=== PATIENT | female | born 1955 | race Caucasian/White ===

== ENCOUNTER 2017-08-04 10:15 | Outpatient (RCR) | payer BC, OTHER ==
[~2017-08-04 10:15] MED LIST: VITAMIN D400 UNI1 PO
== END 2017-08-29 ==
LOC: PT 10:15
PROVIDERS: ATTEND Specialist
DX: S33.5XXA Sprain of ligaments of lumbar spine, initial encounter (principal); M54.5 Low back pain; M62.81 Muscle weakness (generalized)

== ENCOUNTER → 2017-12-17 | Outpatient (CLI) | payer BC, OTHER | LOC: MAMMO 13:41 | PROVIDERS: ATTEND Family Medicine | DX: Z12.31 Encounter for screening mammogram for malignant neoplasm of breast (principal) | CPT/HCPCS: 77067 ==

== ENCOUNTER → 2018-04-14 | Outpatient (CLI) | payer BC, OTHER ==
--- NOTE | 2018-04-14 15:06 | Diagnostic Imaging Report ---
MRI of the left ankle without contrast. History: Trauma. Pain. Decreased range of motion. Technique: Utilizing a high-field 1.5T magnet, the following sequences were acquired: PD FS in all 3 planes with additional axial PD. Comparison: None. Findings: Achilles tendon and plantar fascia: The Achilles tendon and plantar fascia are normal. Small bone spur at the posterior and inferior calcaneus. Small amount of retrocalcaneal bursal fluid. Cartilage and bone: Negative for osteochondral lesion of the tibiotalar and subtalar joints. Negative for fracture, osteonecrosis, or dislocation. Scattered degenerative changes are seen.. Medial ankle: The deltoid ligament complex is intact. There is distal posterior tibial tendinosis with a small amount of fluid surrounding the tendon and soft tissue edema. The medial flexor tendons are otherwise normal. There is a physiologic amount of fluid within the tendon sheath of FHL. Lateral ankle: Scarring and attenuation of the anterior talofibular and calcaneofibular ligaments. The posterior talofibular ligaments are intact. There is a small effusion and mild synovitis in the anterior lateral gutter. The syndesmotic ligaments are intact. The peroneal tendons are normal. Anterior ankle: The anterior extensor tendons are normal. Other findings: There is a tibiotalar joint effusion/synovitis projecting anteriorly. Mild soft tissue edema about the ankle. Impression: Distal posterior tibial tendinosis with a small amount of fluid surrounding the tendon and soft tissue edema. Scarring and attenuation of the anterior talofibular and calcaneofibular ligaments. Tibiotalar joint effusion and synovitis with mild soft tissue edema about the ankle. Signed by: Dr. London Reis M.D. on 04/14/2018 3:02 PM
== END ==
LOC: MRI 12:46
PROVIDERS: ATTEND Family Medicine
DX: M25.572 Pain in left ankle and joints of left foot (principal)

== ENCOUNTER → 2018-09-26 | Outpatient (CLI) | payer BC, OTHER | LOC: SLEEP 20:30 | PROVIDERS: ATTEND Family Medicine | DX: G47.30 Sleep apnea, unspecified (principal); R00.2 Palpitations; E66.9 Obesity, unspecified | CPT/HCPCS: 95811 ==

== ENCOUNTER → 2018-09-26 | Outpatient (CLI) | payer BC, OTHER | LOC: SLEEP 18:43 | PROVIDERS: ATTEND Family Medicine | DX: G47.30 Sleep apnea, unspecified (principal); R00.2 Palpitations; E66.9 Obesity, unspecified ==

== ENCOUNTER 2018-09-27 13:06 | Outpatient (RCR) | payer BC, OTHER | END 2018-09-29 | LOC: PT 13:06 | PROVIDERS: ATTEND Specialist | DX: S46.091D Other injury of muscle(s) and tendon(s) of the rotator cuff of right shoulder, subsequent encounter (principal); M62.81 Muscle weakness (generalized); M25.511 Pain in right shoulder; M79.601 Pain in right arm; M25.611 Stiffness of right shoulder, not elsewhere classified ==

== ENCOUNTER → 2018-09-29 | Outpatient (CLI) | payer BC, OTHER | LOC: RAD 12:41 | DX: R00.2 Palpitations (principal) | CPT/HCPCS: 93225; 93306 ==

== ENCOUNTER 2018-10-04 13:17 | Outpatient (RCR) | payer BC, OTHER | END 2018-10-27 | LOC: PT 13:17 | PROVIDERS: ATTEND Specialist | DX: S46.091D Other injury of muscle(s) and tendon(s) of the rotator cuff of right shoulder, subsequent encounter (principal); M25.511 Pain in right shoulder; M79.601 Pain in right arm; M25.611 Stiffness of right shoulder, not elsewhere classified; M62.81 Muscle weakness (generalized) ==

== ENCOUNTER → 2019-01-05 | Outpatient (CLI) | payer BC, OTHER ==
--- NOTE | 2019-01-05 12:50 | Diagnostic Imaging Report ---
TECHNIQUE: Magnetic resonance imaging of the LEFT KNEE was performed WITHOUT injected contrast. HISTORY: Fall, landed on knee, 3 weeks ago, strain of muscle, tear of lateral meniscus, reported history of repaired meniscus COMPARISON: None available. FINDINGS: LIGAMENTS AND TENDONS: ACL: Intact PCL: Intact Collateral ligaments: Intact Iliotibial band: Unremarkable Popliteal tendon: Intact Extensor mechanism: Intact, minimal intrasubstance degeneration of the proximal patellar tendon. JOINT: Menisci: Medial: Complex tearing and attenuation, most notably the knee with peripheral extrusion of the remnants. Lateral: Mild discoid variant. Articular Cartilage: Medial Compartment: Full-thickness erosion of the weightbearing cartilage and intra-articular air artifact compatible with degenerative changes. Lateral Compartment: Low-grade erosion, fibrillation, and fissuring of the weightbearing cartilage. Patellofemoral Compartment: Diffuse intermediate grade erosion. Joint Fluid: The amount of fluid within the joint is within physiologic limits. BONES: No focal or infiltrative bone marrow replacing abnormality. No acute fracture. Mild subchondral bone marrow edema adjacent to the medial compartment. SOFT TISSUES: Otherwise, unremarkable. IMPRESSION: 1. Medial compartment predominant tricompartmental degenerative changes, including degenerative tearing of the medial meniscus and medial compartment reactive subchondral bone marrow edema. 2. Minimal patellar tendinosis. 3. A subtle acute meniscal injury or medial compartment subchondral bone marrow contusion superimposed upon these chronic changes is possible in the provided setting; however, there is no acute fracture or acute ligamentous tear. Signed by: Dr. Ronnie Anderson D.O., M.M.M. on 01/05/2019 12:47 PM
--- NOTE | 2019-01-05 22:07 | Diagnostic Imaging Report ---
Examination: MRI SPINE LUMBAR WITHOUT CONTRAST History: Low back pain radiating down the left leg for 3 months. Comparison studies: None Technique: Sagittal, coronal and axial T2 , sagittal T1 and STIR; axial spin density oblique. Findings: Number of lumbar vertebral bodies: Five. Alignment: Normal lordosis. No scoliosis. Soft tissues: No T2 hyperintense inflammatory changes. Posterior paraspinal soft tissues and muscles: No abnormality. Lower thoracic cord: Normal in signal and morphology. The tip of the conus is at T12-L1. Cauda equina: No masses. No arachnoiditis. Vertebrae: No fractures, infection or neoplasm. Degenerative changes: L1-L2 through L3-L4: No abnormalities. L4-L5: Asymmetric to the left disc bulge contacts the exiting left L4 nerve root. No foraminal or canal stenosis. L5-S1: Asymmetric to the left disc bulge result in mild left neural foramina narrowing and contact of the exiting left L5 nerve root. No right foraminal or canal stenosis. IMPRESSION: 1. Contact of the exiting left L4 and L5 nerve roots at L4-L5 and L5-S1 by asymmetric to the left disc bulges. 2. No canal or significant (not moderate or severe) stenosis. Signed by: Dr. Mindy Pérez M.D. on 01/05/2019 10:04 PM
== END ==
LOC: MRI 09:49
PROVIDERS: ATTEND Specialist
DX: M54.42 Lumbago with sciatica, left side (principal); S83.282D Other tear of lateral meniscus, current injury, left knee, subsequent encounter; S39.012A Strain of muscle, fascia and tendon of lower back, initial encounter
CPT/HCPCS: 72148

== ENCOUNTER → 2019-05-16 | Outpatient (CLI) | payer BC, OTHER | LOC: CARD 08:27 | PROVIDERS: ATTEND Family Medicine | DX: R00.2 Palpitations (principal); R27.0 Ataxia, unspecified | CPT/HCPCS: 93880 ==

== ENCOUNTER 2019-05-22 15:00 | Outpatient (RCR) | payer BC, OTHER | END 2019-05-29 | LOC: PT 15:00 | PROVIDERS: ATTEND Physical Medicine & Rehabilitation Pain Medicine | DX: M47.27 Other spondylosis with radiculopathy, lumbosacral region (principal) ==

== ENCOUNTER → 2019-07-25 | Outpatient (CLI) | payer BC, OTHER ==
--- NOTE | 2019-07-25 12:22 | Diagnostic Imaging Report ---
Exam: Lumbar spine with flexion and extension views History: Lumbar radiculopathy Comparison: MRI lumbar spine 01/05/2019 Findings: There are 5 nonrib-bearing lumbar vertebral bodies. No acute, displaced fracture or subluxation. Soft tissue, ligamentous, and spinal cord abnormalities cannot be excluded on the basis of plain radiography. There is mild disc space narrowing, vacuum phenomenon, and endplate sclerosis at L5-S1. Remaining intervertebral disc spaces are comparatively well maintained. Mild bilateral facet arthropathy also at L5-S1. Flexion and extension radiographs show no evidence of inducible malalignment. Sacroiliac joints are intact. Sacral foramina are intact superiorly. Multiple upper abdominal surgical clips. Impression: No acute osseous abnormality. Mild lumbosacral degenerative disc changes and facet arthropathy. For further detail of nerve root pathology please refer to the report for MRI of the lumbar spine 01/05/2019. Signed by: Dr. Jared Brennan M.D. on 07/25/2019 12:19 PM
== END ==
LOC: RAD 11:21
PROVIDERS: ATTEND Neurological Surgery
DX: M54.16 Radiculopathy, lumbar region (principal)
CPT/HCPCS: 72110

== ENCOUNTER → 2020-04-05 | Outpatient (CLI) | payer MEDICARE, OTHER ==
--- NOTE | 2020-04-05 16:17 | Diagnostic Imaging Report ---
TECHNIQUE: Magnetic resonance imaging of the RIGHT KNEE was performed WITHOUT injected contrast. HISTORY: Right knee pain, tear of lateral meniscus COMPARISON: Left knee MRI 01/05/2019 FINDINGS: LIGAMENTS AND TENDONS: ACL: Intact PCL: Intact Collateral ligaments: Intact Iliotibial band: Unremarkable Popliteal tendon: Intact Extensor mechanism: Intact. Mild tendinosis of the patellar tendon at the superior attachment. JOINT: Menisci: Medial: Focal tear along the free margin at the body of the medial meniscus. Lateral: Intact Articular Cartilage: Medial Compartment: Diffuse high-grade cartilage thinning along the weightbearing medial femoral condyle and medial tibial plateau. Lateral Compartment: Diffuse low-grade cartilage thinning with scattered fissuring. No full-thickness cartilage defects. Patellofemoral Compartment: Diffuse cartilage thinning with focal high-grade defect overlying the median patellar ridge. Low-grade thinning along the trochlear cartilage. Small tricompartmental marginal osteophytes. Joint Fluid: The amount of fluid within the joint is within physiologic limits. BONE: No focal or infiltrative bone marrow replacing abnormality. No acute fracture. SOFT TISSUES: Anterior subcutaneous soft tissue edema overlying the patellar tendon. IMPRESSION: 1. Small focal tear along the free margin at the body of the medial meniscus. 2. Tricompartmental degenerative changes, greatest within the medial compartment with diffuse high-grade cartilage loss along the weightbearing medial femoral condyle and medial tibial plateau. 3. Mild tendinosis of the patellar tendon. Overlying mild anterior subcutaneous soft tissue edema. Signed by: Jordy Gardner MD on 04/05/2020 4:14 PM
--- NOTE | 2020-04-06 17:47 | Diagnostic Imaging Report ---
History: Lumbar radiculopathy. Comparison studies: Lumbar spine MRI 01/05/2019 Technique: Sagittal, axial coronal T2, sagittal T1, axial T2 FS, sagittal STIR and axial oblique proton density. Intravenous contrast: None Findings: Number of lumbar vertebral bodies: 5. Alignment: Normal lordosis. No scoliosis. Soft tissues: No T2 hyperintense inflammatory changes. Paraspinal muscles: No signal abnormalities. Well-preserved. No atrophic changes Lower thoracic cord: Normal in signal and morphology. The tip of the conus is at L1-L2. Cauda equina: No masses. No arachnoiditis. Vertebrae: No compression fractures, infection or neoplasm. Small Schmorl's node present along the superior T12 endplate. Degenerative changes: L1-L2: No abnormalities L2-L3: No abnormalities L3-L4: No abnormalities L4-L5: Mildly degenerated disc. Disc bulge slightly asymmetric to the left, thickened ligamentum flavum and moderate bilateral facet arthrosis with mild canal stenosis and mild left foraminal stenosis. Patent right foramen. Mild synovitis at the right facet, new from the prior MRI. L5-S1: Moderately degenerated disc with mild degenerative endplate changes with minimal edema along the left inferior L5 endplate. Asymmetric left disc osteophyte complex and mild facet arthrosis result in mild bilateral foraminal stenosis. No significant canal stenosis. These findings are unchanged from the prior MRI. IMPRESSION: 1. Disc degeneration, mild at L4-L5 and moderate at L5-S1, unchanged. 2. Mild degenerative canal stenosis at L4-L5, unchanged. 3. Mild foraminal stenosis at L4-L5 and at L5-S1, unchanged. 4. Moderate L4-L5 facet arthrosis with new mild synovitis at the right facet. Signed by: Dr. Jared Mayfield M.D. on 04/06/2020 5:43 PM
== END ==
LOC: MRI 08:56
PROVIDERS: ATTEND Specialist
DX: S83.281A Other tear of lateral meniscus, current injury, right knee, initial encounter (principal); M54.16 Radiculopathy, lumbar region
CPT/HCPCS: 72148

== ENCOUNTER → 2020-04-24 | Day surgery (SDC) | payer MEDICARE, OTHER ==
[2020-04-19 11:04] LABS: BASOPHILS % 0.5 % (0.0-1.0); EOSINOPHILS # (AUTO) 0.2 (0.0-0.4); EOSINOPHILS % 2.6 % (0.0-6.0); HEMOGLOBIN 12.7 g/dL (12.0-16.0); LYMPHOCYTES # (AUTO) 1.7 (1.0-3.2); LYMPHOCYTES % 21.7 % (18.0-39.1); MEAN CORPUSCULAR HEMOGLOBIN 27.5 pg (28-32); MEAN CORPUSCULAR HGB CONC 31.8 g/dL (31-35); MEAN CORPUSCULAR VOLUME 86.6 fL (81-99); MONOCYTES # (AUTO) 0.6 (0.2-0.8); MONOCYTES % 8.1 % (4.4-11.3); NEUTROPHILS # (AUTO) 5.2 (2.1-6.9); NEUTROPHILS % 66.7 % (38.7-80.0); PLATELET COUNT 209 x10e3/uL (140-360); RED BLOOD COUNT 4.62 x10e6/uL (3.6-5.1); RED CELL DISTRIBUTION WIDTH 13.3 % (11.7-14.4)
--- NOTE | 2020-04-19 11:45 | Diagnostic Imaging Report ---
EXAMINATION: CHEST 2 VIEWS INDICATION: Pre-operative COMPARISON: None FINDINGS: LINES/TUBES:None LUNGS:The lungs are well-inflated. No focal consolidation or pulmonary edema. PLEURA:No pleural effusion or pneumothorax. MEDIASTINUM:The cardiomediastinal silhouette appears normal in size and shape. BONES/SOFT TISSUES:No acute osseous injury. ABDOMEN:No free air under the diaphragm. Surgical clips in the right and left abdomen. IMPRESSION: No focal pneumonia or pulmonary edema. Signed by: Sha Smith MD on 04/19/2020 11:41 AM
[~2020-04-24] MED LIST changes: +ACETAMINOPHEN325 M1 PO; +BUPIVACAINE 0.5%/EPI 30 ML SDV INJ ONE; +CARAFATE1 GM/10 ML PO; +CEFAZOLIN SOD 1 GM/NS 50ML 100 ML IV ONE; +CEFUROXIME250 MG PO; +DEXAMETHASONE SOD PHOS INJ 4 MG/ML VIAL ONE; +FENTANYL CITRATE/PF 100MCG/2 ML INJ ONE; +FLOMAX0.4 MG PO; +KETOROLAC TROME10 MG PO; +KETOROLAC TROMETHAMINE 30 MG/ML VIAL ONE; +LIDOCAINE HCL 2% LOCAL INJ 5 ML SDV VIAL INJ ONE; +MIDAZOLAM HCL 2 MG/2 ML VIAL ONE; +NAPROXEN250 MG PO; +NEXIUM40 MG PO; +OMEPRAZOLE40 MG PO; +ONDANSETRON HCL INJ 2MG/ML 2ML 2 MG/ML VIAL ONE; +PROPOFOL IV EMULSION 10 MG/ML 20 ML VIAL ONE; +SEVOFLURANE INHAL SOLN 250 ML PEN BTL ONE
[2020-04-24 11:10] VITALS: BP 138/81
--- NOTE | 2020-05-02 21:35 | Operative Report ---
DATE OF PROCEDURE: 04/24/2020 SURGEON: Iam Dunn MD PREOPERATIVE DIAGNOSES: Right knee medial meniscal tear and right knee degenerative joint disease of the knee. POSTOPERATIVE DIAGNOSES: Right knee medial meniscal tear and right knee degenerative joint disease of the knee. OPERATION PROCEDURE PERFORMED: The patient had right knee examination under anesthesia, right knee arthroscopy, right knee partial medial meniscectomy, right knee chondroplasty of the patella, trochlea, medial femoral condyle and medial tibial plateau, and the lateral tibial plateau. 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 ANESTHESIA: Per the anesthesia record. BRIEF DESCRIPTION OF THE PATIENT'S OPERATIVE PROCEDURE: Ms. Bear was taken to the operating room and placed in supine position on the operating table. Following induction of general anesthesia as well as the endotracheal intubation, the patient's right lower extremity was examined under anesthesia. She was found to have a mild effusion within the knee joint, but otherwise ligamentously stable knee. The patient's lower extremity was prepped and draped in standard surgical fashion. A two-port technique used to provide this patient arthroscopic evaluation of the knee joint. Examination of suprapatellar pouch medial and lateral gutters found no evidence of loose bodies. There was however evidence of chondromalacia of the patella and trochlear surfaces. Scope was advanced to the medial compartment. Exam of the medial compartment demonstrated a torn medial meniscus. There was also chondromalacia articulating surfaces. A combination of biting forceps and a motorized shaver used to resect the torn portion of meniscus. Chondroplasties of the medial femoral condyle and medial tibial plateau performed at this time. Scope was then advanced into the intercondylar notch and the anterior cruciate ligament was identified and found to be intact. Scope was then advanced to the lateral compartment and chondromalacia lateral tibial plateau was identified. A chondroplasty of the surface was performed. The scope was then placed in suprapatellar pouch and chondroplasties of the patella and trochlear performed. The knee was then deflated with sterile normal saline. The portal was closed using 4-0 nylon suture. The portal sites as well as itself were injected with 0.5% Marcaine with epinephrine. Sterile dressings were applied. The patient was then awakened and taken to postanesthesia care unit in stable condition. Edward B Dunn, MD EBR/BALA /[id number]
== END | disposition home or self-care (01) ==
LOC: OR 07:37
PROVIDERS: ATTEND Specialist
DX: S83.221A Peripheral tear of medial meniscus, current injury, right knee, initial encounter (principal); M22.41 Chondromalacia patellae, right knee; M17.0 Bilateral primary osteoarthritis of knee; M22.2X2 Patellofemoral disorders, left knee; G47.33 Obstructive sleep apnea (adult) (pediatric); K21.9 Gastro-esophageal reflux disease without esophagitis; K44.9 Diaphragmatic hernia without obstruction or gangrene; M54.9 Dorsalgia, unspecified; X58.XXXA Exposure to other specified factors, initial encounter; Z01.810 Encounter for preprocedural cardiovascular examination; Z01.812 Encounter for preprocedural laboratory examination; Z01.818 Encounter for other preprocedural examination; Z11.59 Encounter for screening for other viral diseases; Z68.41 Body mass index [BMI] 40.0-44.9, adult; Z82.61 Family history of arthritis
CPT/HCPCS: 29881; 36415; 71046; 85025; 93005; J0690; J1100; J1885; J2001; J2250; J2405; J2704; J3010; U0002

== ENCOUNTER 2020-05-07 06:36 | Emergency (ER) | payer MEDICARE, OTHER ==
[~2020-05-07] VITALS: Ht 154.9 cm; Wt 96.2 kg
[~2020-05-07 06:36] MED LIST changes: -BUPIVACAINE 0.5%/EPI 30 ML SDV INJ ONE; -CEFAZOLIN SOD 1 GM/NS 50ML 100 ML IV ONE; -CEFUROXIME250 MG PO; -DEXAMETHASONE SOD PHOS INJ 4 MG/ML VIAL ONE; -FENTANYL CITRATE/PF 100MCG/2 ML INJ ONE; -FLOMAX0.4 MG PO; -KETOROLAC TROME10 MG PO; -KETOROLAC TROMETHAMINE 30 MG/ML VIAL ONE; -LIDOCAINE HCL 2% LOCAL INJ 5 ML SDV VIAL INJ ONE; -MIDAZOLAM HCL 2 MG/2 ML VIAL ONE; -NEXIUM40 MG PO; -ONDANSETRON HCL INJ 2MG/ML 2ML 2 MG/ML VIAL ONE; -PROPOFOL IV EMULSION 10 MG/ML 20 ML VIAL ONE; -SEVOFLURANE INHAL SOLN 250 ML PEN BTL ONE
[2020-05-07] MEDS ORDERED: ONDANSETRON HCL INJ 2MG/ML 2ML 2 MG/ML VIAL IV STA (06:42)
[2020-05-07] MEDS ORDERED: SODIUM CHLORIDE 0.9% 1000ML 1,000 ML IV STA (06:42)
[2020-05-07] MEDS ORDERED: KETOROLAC TROMETHAMINE 30 MG/ML VIAL IV STA (06:42)
--- OUTSIDE RECORDS SUMMARY | 2020-05-07 06:53 | XMS REPORT | Clinical Summary ---
Author Author [facility] Organization [facility] Address Unknown Phone Unavailable Care Team Providers Care Sonar Technician Name Role Phone Jose Jimenes MD PCP Allergies No Known Allergies Medications End Date Status Medication Sig Dispensed Refills Start Date Active meloxicam (MOBIC) 15 mg Take 15 mg by 0 tablet mouth daily. Active Problems No known active problems Encounters Care Team Description Date Type Specialty Tiara Moralez PA Mixed incontinence urge and stress (Prim rachel Dx); Urinary frequency 07/10/2019 Office Visit Urology Angelica Garcia MD Stress incontinence of urine (Primary Dx ) 06/20/2019 Transcribe Urology Orders after 05/07/2019 Family History Medical History Relation Name Comments Stroke Father Dementia Mother Relation Name Status Comments Father Mother Social History Date Tobacco Use Types Packs/Day Years Used Never Smoker Smokeless Tobacco: Never Used Sex Assigned at Date Recorded Not on file Industry Job Start Date Occupation Not on file Not on file Not on file Travel End Travel History Travel Start No recent travel history available. Last Filed Vital Signs Reading Time Taken Comments Vital Sign 153/79 07/10/2019 10:26 AM [employer] Blood Pressure 63 07/10/2019 10:26 AM [employer] Pulse - - Temperature - - Respiratory Rate - - Oxygen Saturation - - Inhaled Oxygen Concentration 95.3 kg (210 lb) 07/10/2019 10:26 AM [employer] Weight 154.9 cm (5' 1") 07/10/2019 10:26 AM [employer] Height 39.68 07/10/2019 10:26 AM [employer] Body Mass Index Plan of Treatment Health Maintenance Due Date Last Done Comments BREAST CANCER SCREENING 2004 COLONOSCOPY SCREENING 2004 SHINGLES VACCINES (#1) 2004 65+ PNEUMOCOCCAL VACCINE 2019 (1 of 2 - PCV13) INFLUENZA VACCINE 05/30/2020 Procedures Comments Procedure Name Priority Date/Time Associated Diag nosis POC URINALYSIS DIPSTICK Routine 07/10/2019 Mixed incontinence urge 10:32 AM [employer] and stress after 05/07/2019 Results * POC urinalysis dipstick (07/10/2019 10:32 AM [employer]) Color urine, Yellow POC Clarity urine, Clear POC Glucose urine, Negative Negative POC Bilirubin Negative Negative urine, POC Ketones urine, Negative Negative POC Specific >/=1.030 1.005 - 1.030 gravity urine, POC Blood urine, Negative Negative POC pH urine, POC 6.0 5.0, 5.5, 6.0, 6.5, 7.0, 7.5, 8.0, 8.5 Protein urine, Negative Negative POC Urobilinogen <2.0 <2.0 urine, POC Nitrite urine, Negative Negative POC Leukocyte Negative Negative esterase urine, POC Specimen Urine after 05/07/2019 Insurance Type Payer Benefit Subscriber ID Effective Phone Address Plan / Dates Group PPO BCBS BCBS OUT xxxxxxxxxxxx 2016-P OF STATE resent HMO CIGNA CIGNA OPEN xxxxxxxxxxx 2016-P ACCESS/NET resent WORK Advance Directives For more information, please contact: [phone] 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
--- OUTSIDE RECORDS SUMMARY | 2020-05-07 06:53 | XMS REPORT | Continuity of Care Document ---
Author Author [facility] Organization [facility] Address 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 [place] [place] Problems This patient has no known problems. Allergies, Adverse Reactions, Alerts This patient has no known allergies or adverse reactions. Family History Family Member Diagnosis Comments Start Date Stop Date Source Natural father Stroke [facility] Natural mother Dementia [facility] Social History Social Habit Start Date Stop Date Quantity Comments Source Sex Assigned At Mariana Fernandez Smoking Status Start Date Stop Date Source Never smoker [facility] Medications Ordered Medication Name Filled Medication Name Start Date Stop Da te Current Medication? Ordering Clinician Indication Dosage Frequency Signature (SIG) Comments Components Source meloxicam (MOBIC) 15 mg tablet 2019-07-10 10:27:43 Yes 15mg QD Take 15 mg by mouth daily. Hong Fernandez Cholecalciferol (Vitamin D) 400 Unit Tab Cholecalcifer ol (Vitamin D) 400 Unit Tab Yes [facility] [place] [place] Vital Signs Vital Name Observation Time Observation Value Comments Source Systolic blood pressure 2019-07-10 10:26:00 153 mm[Hg] Hong Fernandez Diastolic blood pressure 2019-07-10 10:26:00 79 mm[Hg] Hong Fernandez Heart rate 2019-07-10 10:26:00 63 /min Hong Fernandez Body height 2019-07-10 10:26:00 154.9 cm Hong Fernandez Body weight 2019-07-10 10:26:00 95.255 kg Hong Fernandez BMI 2019-07-10 10:26:00 39.68 kg/m2 Hong Fernandez Procedures Procedure Date / Time Performed Performing Clinician [facility] e POC URINALYSIS DIPSTICK 2019-07-10 10:32:00 Tiaar Moralez Magnetic resonance imaging of lumbar spine without contrast [facility] 2019-01-05 00:00:[address] CASTAÑ[address] [facility] [place] [place] Plan of Care Planned Activity Planned Date Details Comments Source Future Scheduled Test 2020-05-30 00:00:00 INFLUENZA VACCINE [code = INFLUENZA VACCINE] [facility] Future Scheduled Test 2019 00:00:00 65+ PNEUMOCOCCAL V ACCINE (1 of 2 - PCV13) [code = 65+ PNEUMOCOCCAL VACCINE (1 of 2 - PCV13)] [facility] Future Scheduled Test 2004 00:00:00 BREAST CANCER SCRE ENING [code = BREAST CANCER SCREENING] [facility] Future Scheduled Test 2004 00:00:00 COLONOSCOPY SCREEN ING [code = COLONOSCOPY SCREENING] [facility] Future Scheduled Test 2004 00:00:00 SHINGLES VACCINES (#1) [code = SHINGLES VACCINES (#1)] Hong Fernandez Encounters Start Date/Time End Date/Time En[facility] ID Source 2019-05-22 15:00:00 2019-05-29 23:59:00 Discharged Recurring [facility] [id number] [facility] [place] [place] 2019-05-16 08:27:00 2019-05-16 08:27:00 Registered Clinic [facility] [id number] [facility] [place] [place] 2019-01-05 09:49:00 2019-01-05 09:49:00 Registered Clinic DAVID BEAL [facility] [id number] [facility] 2018-10-04 13:17:00 2018-10-27 23:59:00 Discharged Recurring [facility] [id number] [facility] [place] [place] 2018-09-27 13:06:00 2018-09-29 23:59:00 Discharged Recurring [facility] [id number] [facility] [place] [place] 2018-09-29 12:41:00 2018-09-29 12:41:00 Registered Clinic [facility] [id number] [facility] [place] [place] 2018-09-26 20:30:00 2018-09-26 20:30:00 Registered Clinic [facility] [id number] [facility] [place] [place] 2018-09-26 18:43:00 2018-09-26 18:43:00 Registered Clinic [facility] [id number] [facility] [place] [place] 2018-04-14 12:46:00 2018-04-14 12:46:00 Registered Clinic 3 TH ADRIAN CABRALES [facility] [id number] [facility] 2017-12-17 13:41:00 2017-12-17 13:41:00 Registered Clinic EL TH ADRIAN CABRALES [facility] [id number] [facility] Results Test Description Test Time Test Comments Results Result Comments Source CHEST 2 VIEWS 2020-04-19 11:41:00 [facility] [address] [place] [address] Patient Name: GINA ENGEL MR #: [id number] : 1955 Age/Sex: 64/F Req #: [id number] Adm Physician: Ordered by: DAVID CASTAÑEDA MD Report #: [id number] Location: OR Room/Bed: Procedure: [id number] DX/CHEST 2 VIEWS Exam Date: 04/19/20 Exam Time: 1101 REPORT STATUS: Signed EXAMINATION: CHEST 2 VIEWS INDICATION: Pre-operative COMPARISON: None FINDINGS: LINES/TUBES:None LUNGS:The lungs are well-inflated. No focal consolidation or pulmonary edema. PLEURA:No pleural effusion or pneumothorax. MEDIASTINUM:The cardiomediastinal silhouette appears normal in size and shape. BONES/SOFT TISSUES:No acute osseous injury. ABDOMEN:No free air under the diaphragm. Surgical clips in the right and left abdomen. IMPRESSION: No focal pneumonia or pulmonary edema. Signed by: Richmond Frederick MD on 04/19/2020 11:41 AM Dictated By: RICHMOND FREDERICK MD 1141 Transcribed By: NEGRA on 04/19/20 1141 COPY TO: DAVID CASTAÑEDA MD MRI SPINE LUMBAR WO 2020-04-06 17:25:[address] [address] Patient Name: GINA ENGEL MR #: [id number] : 1955 Age/Sex: 64/F Req #: [id number] Adm Physician: Ordered by: CAROLE MONTANEZ M.D. Report #: [id number] Location: MRI Room/Bed: Procedure: [id number] MRI/MRI SPINE LUMBAR WO Exam Date: Exam Time: REPORT STATUS: Signed History: Lumbar radiculopathy. Comparison studies: Lumbar spine MRI 01/05/2019 Technique: Sagittal, axial coronal T2, sagittal T1, axial T2 FS, sagittal STIR and axial oblique proton density. Intravenous contrast: None Findings: Number of lumbar vertebral bodies: 5. Alignment: Normal lordosis. No scoliosis. Soft tissues: No T2 hyperintense inflammatory changes. Paraspinal muscles: No signal abnormalities. Well-preserved. No atrophic changes Lower thoracic cord: Normal in signal and morphology. The tip of the conus is at L1-L2. Cauda equina: No masses. No arachnoiditis. Vertebrae: No compression fractures, infection or neoplasm. Small Schmorl's node present along the superior T12 endplate. Degenerative changes: L1-L2: No abnormalities L2-L3: No abnormalities L3-L4: No abnormalities L4-L5: Mildly degenerated disc. Disc bulge slightly asymmetric to the left, thickened ligamentum flavum and moderate bilateral facet arthrosis with mild canal stenosis and mild left foraminal stenosis. Patent right foramen. Mild synovitis at the right facet, new from the prior MRI. L5-S1: Moderately degenerated disc with mild degenerative endplate changes with minimal edema along the left inferior L5 endplate. Asymmetric left disc osteophyte complex and mild facet arthrosis result in mild bilateral foraminal stenosis. No significant canal stenosis. These findings are unchanged from the prior MRI. IMPRESSION: 1. Disc degeneration, mild at L4-L5 and moderate at L5- S1, unchanged. 2. Mild degenerative canal stenosis at L4-L5, unchanged. 3. Mild foraminal stenosis at L4-L5 and at L5-S1, unchanged. 4. Moderate L4-L5 facet arthrosis with new mild synovitis at the right facet. Signed by: Dr. Joseph Anderson M.D. on 04/06/2020 5:43 PM Dictated By: JOSEPH ANDERSON MD 42 Transcribed By: NEGRA on 04/06/201742 COPY TO: CAROLE MONTANEZ M.D. MRI RIGHT KNEE WO 2020-04-05 14:59:00 [place] [address] Patient Name: GINA ENGEL MR #: [id number] : 1955 Age/Sex: 64/F Req #: [id number] Adm Physician: Ordered by: DAVID CASTAÑEDA MD Report #: [id number] Location: MRI Room/Bed: Procedure: [id number] MRI/MRI RIGHT KNEE WO Exam Date: Exam Time: REPORT STATUS: Signed TECHNIQUE: Magnetic resonance imaging of the RIGHT KNEE was performed WITHOUT injected contrast. HISTORY: Right knee pain, tear of lateral meniscus COMPARISON: Left knee MRI 01/05/2019 FINDINGS: LIGAMENTS AND TENDONS: ACL: Intact PCL: Intact Collateral ligaments: Intact Iliotibial band: Unremarkable Popliteal tendon: Intact Extensor mechanism: Intact. Mild tendinosis of the patellar tendon at the superior attachment. JOINT: Menisci: Medial: Focal tear along the free margin at the body of the medial meniscus. Lateral: Intact Articular Cartilage: Medial Compartment: Diffuse high-grade cartilage thinning along the weightbearing medial femoral condyle and medial tibial plateau. Lateral Compartment: Diffuse low-grade cartilage thinning with scattered fissuring. No full-thickness cartilage defects. Patellofemoral Compartment: Diffuse cartilage thinning with focal high-grade defect overlying the median patellar ridge. Low-grade thinning along the trochlear cartilage. Small tricompartmental marginal osteophytes. Joint Fluid: The amount of fluid within the joint is within physiologic limits. BONE: No focal or infiltrative bone marrow replacing abnormality. No acute fracture. SOFT TISSUES: Anterior subcutaneous soft tissue edema overlying the patellar tendon. IMPRESSION: 1. Small focal tear along the free margin at the body of the medial meniscus. 2. Tricompartmental degenerative changes, greatest within the medial compartment with diffuse high-grade cartilage loss along the weightbearing medial femoral condyle and medial tibial plateau. 3. Mild tendinosis of the patellar tendon. Overlying mild anterior subcutaneous soft tissue edema. Signed by: Annmarie Gardner MD on 04/05/2020 4:14 PM Dictated By: ANNMARIE GARDNER MD 13 Transcribed By: NEGRA on 04/05/201613 COPY TO: DAVID CASTAÑEDA MD BASIC METABOLIC PANEL 2019-10-16 15:44:00 Test Item SODIUM (test code = NA) 138 MMOL/L 136-143 N POTASSIUM (test code = K) 4.0 MMOL/L 3.5-5.1 N CHLORIDE (test code = CL) 99 MMOL/L 98-107 N CARBON DIOXIDE (test code = CO2) 26 mmol/L 24-31 N GLUCOSE (test code = GLU) 95 mg/dL 70-104 N BLOOD UREA NITROGEN (test code = BUN) 15.9 MG/DL 7.0-21.0 N GLOMERULAR FILTRATION RATE (test code = GFR) >=60 max estimate >60 The estimated glomerular filtration rate is computed usingpatient race, age (>18), sex, and serum creatinine. If anyof the needed data elements are missing the Laboratory cannot compute an estimation of the glomerular filtration rate. CREATININE (test code = CREAT) 0.5 mg/dL 0.8-1.5 L CALCIUM (test code = CA) 9.5 mg/dL 8.8-10.2 N CBC W/AUTO [id number] 15:29:00* Test Item Value Reference Range Interpretation Comments WHITE BLOOD CELL (test code = WBC) 7.2 x10 3/uL 4.8-10.8 N RED BLOOD CELL (test code = RBC) 5.03 x10 6/uL 4.20-5.40 N HEMOGLOBIN (test code = HGB) 14.0 g/dL 14.5-20 L HEMATOCRIT (test code = HCT) 43.3 % 37.0-47.0 N MEAN CELL VOLUME (test code = MCV) 86.1 fL 81.0-99.0 N MEAN CELL HGB (test code = MCH) 27.8 pg 27-31 N MEAN CELL HGB CONCENTRATION (test code = MCHC) 32.3 G/DL 33-36.5 L RED CELL DISTRIBUTION WIDTH (test code = RDW) 13.3 % 12.9-16. 9 N PLATELET COUNT (test code = PLT) 214 150-440 N MEAN PLATELET VOLUME (test code = MPV) 10.7 fL 8.9-12.4 N NEUTROPHIL % (test code = NT%) 66.1 % 42.2-75.2 N LYMPHOCYTE % (test code = LY%) 24.1 % 20.5-51.1 N MONOCYTE % (test code = MO%) 6.7 % 1.7-9.3 N EOSINOPHIL % (test code = EO%) 2.1 % 0.0-7.0 N BASOPHIL % (test code = BA%) 0.6 % 0-2.5 N NEUTROPHIL # (test code = NT#) 4.74 x10 3/uL 1.80-7.70 N LYMPHOCYTE # (test code = LY#) 1.73 x10 3/uL 1.00-4.80 N MONOCYTE # (test code = MO#) 0.48 x10 3/uL 0.00-0.80 N EOSINOPHIL # (test code = EO#) 0.15 x10 3/uL 0.00-0.45 N BASOPHIL # (test code = BA#) 0.04 x10 3/uL 0.0-0.20 N TROPONIN I [id number] 15:26:00* Test Item Value Reference Range Interpretation Comments TROPONIN I RAPID (test code = TROPIRAP) 0.00 ng/mL 0.00-0.08 N - The use of serial sampling and testing protocol is a recommended practice- An elevated tropnin level alone is often not sufficient for diagnosis of myocardial infarction. SP LUM AP/LAT/FLEX/EXT MIN [id number] 12:15:00 [place] [address] Patient Name: GINA ENGEL MR #: [id number] : 1955 Age/Sex: 64/F Req #: [id number] [facility] Physician: Ordered by: CAROLE MONTANEZ M.D. Report #: [id number] Location: [facility] Room/Bed: Procedure: [id number] DX/SP LUM AP/LAT/FLEX/EXT MIN 4VW Exam Date: 07/25/19 Exam Time: 1145 REPORT STATUS: S igned Exam: Lumbar spine with flexion and extension views History: Lumbar radiculopathy Comparison: MRI lumbar spine 01/05/2019 Findings: There are 5 nonrib-bearing lumbar vertebral bodies. No acute, displaced fr acture or subluxation. Soft tissue, ligamentous, and spinal cord abnormalities cannot be excluded on the basis of plain radiography. There is mild disc space narrowing, vacuum phenomenon, and endplate sclerosis at L5-S1. Remaining int ervertebral disc spaces are comparatively well maintained. Mild bilateral face t arthropathy also at L5-S1. Flexion and extension radiographs show no evidenc e of inducible malalignment. Sacroiliac joints are intact. Sacral foramina are intact superiorly. Multiple upper abdominal surgical clips. Impres carlos: No acute osseous abnormality. Mild lumbosacral degenerative disc changes and facet arthropathy. For further detail of nerve root pathology please refer to the report for MRI of the lumbar spine 01/05/2019. Signed by: Dr. Joseph Brennan M.D. on 07/25/2019 12:19 PM Dictated By: JOSEPH BRENNAN MD 121 T ranscribed By: NEGRA on 07/25/19 2311 COPY TO: CAROLE MONTANEZ M.D. POC urinalysis [id number] 10:32:00* Test Item Value Reference Range Interpretation Comments Color urine, POC (test code = 1293043) Yellow Clarity urine, POC (test code = 9360292) Clear Glucose urine, POC (test code = 6327726) Negative Negative Bilirubin urine, POC (test code = 5922477) Negative Negative Ketones urine, POC (test code = 7775458) Negative Negative Specific gravity urine, POC (test code = 9267612) >/=1.030 1.00 5-1.030 Blood urine, POC (test code = 8632018) Negative Negative pH urine, POC (test code = 2598105) 6.0 5.0, 5.5, 6. 0, 6.5, 7.0, 7.5, 8.0, 8.5 Protein urine, POC (test code = 1843854) Negative Negative Urobilinogen urine, POC (test code = 5779865) <2.0 <2.0 Nitrite urine, POC (test code = 0623549) Negative Negative Leukocyte esterase urine, POC (test code = 2443286) Negative Ne surinder [place] [facility] w[facility]o [id number] 15:53:49Patient: GINA ENGEL Date/Time01/21/2019 15:05 CDTReason for ExamHead injuryReportCLINICAL INFORMAT ION: Head injury. Headache.Dictation Location: R 16COMPARISON: No prior.Techniqu e: CT head was done in the usual fashion. Appropriate dose reduction and image o ptimization techniques were used. DLP 623 mGy-cm. Findings: There is a large rig ht parietal scalp hematoma with laceration closed by surgical clips. The subjace nt cranium and the skull base appear unremarkable. The brain shows no midline sh ift, mass effect, hemorrhage, or abnormal extra-axial fluid collection. There is no intrinsic brain mass or recent ischemia.Impression:1. Large right parietal s calp hematoma.2. Intact skull and brain. Final Dictated by: MD Bateman Andrew GDictated DT/TM: 01/21/2019 3:51 pmSigned by: MD Bateman Andrew GS igned (Electronic Signature): 01/21/2019 3:53 pmMRI SPINE LUMBAR [id number] 14:15:00 [place] [address] Patient Name: GINA ENGEL MR #: [id number] : 1955 Age/Sex: 63/F Req #: [id number] Adm Physician: Ordered by: DAVID CASTAÑEDA MD Report #: [id number] Location: MRI Room/Bed: Procedure: [id number] MRI/MRI SPINE LUMBAR WO Exam Date: Exam Time: REPORT STATUS: Signed Examination: M RI SPINE LUMBAR WITHOUT CONTRAST History: Low back pain radiating down the left leg for 3 months. Comparison studies: None Technique: Sagittal, coronal and axial T2 , sagittal T1 and STIR; axial spin density oblique. Findings: Number of lumbar vertebral bodies: Five. Alignment: Normal lordosis. No scoliosis. Soft tissues: No T2 hyperintense inflammatory changes. Posterior paraspinal soft tissues and muscles: No abnormality. Lower thor acic cord: Normal in signal and morphology. The tip of the conus is at T12-L1. Cauda equina: No masses. No arachnoiditis. Vertebrae: No fractures, infection or neoplasm. Degenerative changes: L1-L2 through L3-L4: No abnormalities. L4-L5: Asymmetric to the left disc bulge contacts the exi ting left L4 nerve root. No foraminal or canal stenosis. L5-S1: Asymme tric to the left disc bulge result in mild left neural foramina narrowing and contact of the exiting left L5 nerve root. No right foraminal or canal stenosi s. IMPRESSION: 1. Contact of the exiting left L4 and L5 nerve roots at L4-L5 and L5-S1 by asymmetric to the left disc bulges. 2. No canal or significant (not moderate or severe) stenosis. Signed by: Dr. Angela smith M.D. on 01/05/2019 10:04 PM Dictated By: ANGELA ESPINOZA MD 03 Transcri bed By: NEGRA on 01/05/192203 COPY TO: DAVID CASTAÑEDA MD MRI KNEE LEFT [id number] 12:37:00 [place] [address] Patient Name: GINA ENGEL MR #: [id number] : 1955 Age/Sex: 63/F Req #: [id number] Adm Physician: Ordered by: DAVID CASTAÑEDA MD Report #: [id number] Location: MRI Room/Bed: Procedure: [id number] MRI/MRI KNEE LEFT WO Exam Date: Exam Time: REPORT STATUS: Signed TECHNIQUE: Magn etic resonance imaging of the LEFT KNEE was performed WITHOUT injected contras t. HISTORY: Fall, landed on knee, 3 weeks ago, strain of muscle, tear of lateral meniscus, reported history of repaired meniscus COMPARISON: None av ailable. FINDINGS: LIGAMENTS AND TENDONS: ACL: Intact PCL: Intact Collateral ligaments: Intact Iliotibial band: Unremarkable Popliteal ten don: Intact Extensor mechanism: Intact, minimal intrasubstance degeneration of the proximal patellar tendon. JOINT: Menisci: Medial: Complex te aring and attenuation, most notably the knee with peripheral extrusion of the remnants. Lateral: Mild discoid variant. Articular Cartilage: Medial C ompartment: Full-thickness erosion of the weightbearing cartilage and intra-a rticular air artifact compatible with degenerative changes. Lateral Compartmen t: Low-grade erosion, fibrillation, and fissuring of the weightbearing cartil age. Patellofemoral Compartment: Diffuse intermediate grade erosion. Iesha nt Fluid: The amount of fluid within the joint is within physiologic limits. BONES: No focal or infiltrative bone marrow replacing abnormality. No acute fracture. Mild subchondral bone marrow edema adjacent to the medial c ompartment. SOFT TISSUES: Otherwise, unremarkable. IMPRESSION: 1. Medial compartment predominant tricompartmental degenerative changes, incl uding degenerative tearing of the medial meniscus and medial compartment react veronica subchondral bone marrow edema. 2. Minimal patellar tendinosis. 3. A wall btle acute meniscal injury or medial compartment subchondral bone marrow contu carlos superimposed upon these chronic changes is possible in the provided setti ng; however, there is no acute fracture or acute ligamentous tear. Signed by: Karis ShannonOVirgilio, M.M.M. on 01/05/2019 12:47 PM Dictated By: BEBA REHMAN DO 1247 Transcrib ed By: NEGRA on 01/05/19 1247 COPY TO: DAVID CASTAÑEDA MD MRI ANKLE LEFT [id number] 14:52:00 [place] [address] Patient Name: GINA ENGEL MR #: [id number] : 1955 Age/Sex: 62/F Req #: [id number] Adm Physician: Ordered by: ADRIAN MARTINEZ MD Report #: [id number] Location: MRI Room/Bed: Procedure: [id number] MRI/MRI ANKLE LEFT WO Exam Date : Exam Time: REPORT STATUS: Signed MRI of the left ankle without contrast. History: Trauma. Pain. Decreased range of motion. Technique: Utilizing a high-field 1.5T magnet, the following seque nces were acquired: PD FS in all 3 planes with additional axial PD. Comp arison: None. Findings: Achilles tendon and plantar fascia: The Parlier s tendon and plantar fascia are normal. Small bone spur at the posterior and i nferior calcaneus. Small amount of retrocalcaneal bursal fluid. Cartilage and bone: Negative for osteochondral lesion of the tibiotalar and subtalar phyllis ints. Negative for fracture, osteonecrosis, or dislocation. Scattered degenera tive changes are seen.. Medial ankle: The deltoid ligament complex is intac t. There is distal posterior tibial tendinosis with a small amount of fluid s urrounding the tendon and soft tissue edema. The medial flexor tendons are oth erwise normal. There is a physiologic amount of fluid within the tendon sheat h of FHL. Lateral ankle: Scarring and attenuation of the anterior talofibul ar and calcaneofibular ligaments. The posterior talofibular ligaments are inta ct. There is a small effusion and mild synovitis in the anterior lateral gutte r. The syndesmotic ligaments are intact. The peroneal tendons are normal. Anterior ankle: The anterior extensor tendons are normal. Other findings: There is a tibiotalar joint effusion/synovitis projecting anteriorly. Mil d soft tissue edema about the ankle. Impression: Distal posterior tibial tendinosis with a small amount of fluid surrounding the tendon and soft tissue edema. Scarring and attenuation of the anterior talofibular and calcaneofi bular ligaments. Tibiotalar joint effusion and synovitis with mild soft t issue edema about the ankle. Signed by: Dr. Humera Reis M.D. on 8 3:02 PM Dictated By: HUMERA REIS MD, MD 1502 Transcribed By: NEGRA on 04/14/18 1502 COPY TO: ADRIAN MARTINEZ MD [facility] DIGITAL SCR [place] [address] Patient Name: GINA ENGEL MR #: [id number] : 1955 Age/Sex: 62/F Req #: [id number] [facility] Physician: Ordered by: ADRIAN MARTINEZ MD Report #: [id number] Location: MAMMO Room/Bed: Procedure: [id number] MG/MAMMOGRAPHY DIGITAL SCR BILA T Exam Date: 12/17/17 Exam Time: 1350 REPORT S TATUS: Signed #[id number] - [id number] #BILATERAL DIGITAL SCREENING STEPH CARMINA WITH CAD: 12/17/2017 CLINICAL: Routine screening. Comparison is m estrella to exams dated: 11/13/2016 mammogram - [facility] an d 01/04/2008 mammogram - [facility]. Current study contains 4 film s. The tissue of both breasts is predominantly fatty. Current study was also evaluated with a Computer Aided Detection (CAD) system. There are benig n calcifications in both breasts. There also are benign lymph nodes in both tia asts. No significant masses, calcifications, or other findings are seen i n either breast. There has been no significant interval change. IMPRESS ION: BENIGN There is no mammographic evidence of malignancy. A 1 year screeni ng mammogram is recommended. The patient will be notified by letter of the shaquille vasquez. Yves villagomez/jr:12/24/2017 11:29:09 Physical Science Teacher: Angelica LAZAR(R)(M), [facility] letter sent: Compared to Prior B9 Mammogram BI-RADS: 2 Benign Dictated By: YVES PERERA DO 1129 COPY TO: ADRIAN MARTINEZ MD MRI KNEE LEFT WO [facility] [place] [address] Patient Name: GINA ENGEL MR #: [id number] : 1955 Age/Sex: 62/F Req #: [id number] [facility] Physician: Ordered by: DAVID CASTAÑEDA MD Report #: [id number] Location: MRI Room/Bed: Procedure: [id number] MRI/MRI KNEE LEFT WO Exam D ate: 05/06/17 Exam Time: 1410 REPORT STATUS: Si gned TECHNIQUE: Magnetic resonance imaging of the LEFT KNEE was performed W ITHOUT injected contrast. HISTORY: Left knee pain COMPARISON: MRI Ap ril 2016 FINDINGS: LIGAMENTS AND TENDONS: ACL: Intact PCL: Intact Collateral ligaments: Intact Iliotibial band: Unrem arkable Popliteal tendon: Intact Extensor mechanism: Intact JOINT: Menisci: Medial: Complex tearing with macerated bod y. Lateral: Partial discoid with free margin fraying. Art icular Cartilage: Medial Compartment: High-grade cartilage loss wit h areas of full-thickness erosion Lateral Compartment: Low-grade cartilage loss Patellofemoral Compartment: Intermediate grade carti sofia loss Joint Fluid: Small joint effusion. BONE: Subchondra l edema medial compartment. No acute fracture. SOFT TISSUES: Otherwis e, unremarkable. IMPRESSION: Tricompartmental cartilage loss, medi al compartment predominant with areas of full thickness cartilage loss and sub chondral edema. Medial meniscus complex tearing and lateral meniscus partia l discoid with free margin fraying. Overall stable. Signed by: Dr. Mika Noguera M.D. on 05/06/2017 3:59 PM Dictated By: JANETH NOGUERA MD [id number] Transcribed By: NEGRA on 05/06/17 [id number] COPY TO: DAVID CASTAÑEDA MD
[2020-05-07 06:57] LABS: BASOPHILS % 0.6 % (0.0-1.0); EOSINOPHILS # (AUTO) 0.2 (0.0-0.4); EOSINOPHILS % 2.7 % (0.0-6.0); HEMATOCRIT 40.7 % (34.2-44.1); LYMPHOCYTES # (AUTO) 1.5 (1.0-3.2); LYMPHOCYTES % 20.4 % (18.0-39.1); MEAN CORPUSCULAR HEMOGLOBIN 27.4 pg (28-32); MEAN CORPUSCULAR HGB CONC 31.9 g/dL (31-35); MEAN CORPUSCULAR VOLUME 85.9 fL (81-99); MONOCYTES # (AUTO) 0.4 (0.2-0.8); MONOCYTES % 5.9 % (4.4-11.3); NEUTROPHILS % 70.1 % (38.7-80.0); PLATELET COUNT 201 x10e3/uL (140-360); RED BLOOD COUNT 4.74 x10e6/uL (3.6-5.1); RED CELL DISTRIBUTION WIDTH 13.3 % (11.7-14.4)
[2020-05-07 07:10] LABS: CLARITY,URINE SL CLOUDY (CLEAR); COLOR,URINE YELLOW (YELLOW); KETONES,URINE NEGATIVE (NEGATIVE); LEUKOCYTE ESTERASE ,URINE NEGATIVE (NEGATIVE); NITRITE,URINE NEGATIVE (NEGATIVE); PROTEIN,URINE DIPSTICK NEGATIVE (NEGATIVE)
[2020-05-07 07:11] LABS: BILIRUBIN,URINE NEGATIVE (NEGATIVE); URINE UROBILINOGEN 1 mg/dL (0.2 - 1)
--- NOTE | 2020-05-07 07:16 | NUR ---
Assumed care of patient from offgoing RN. Pt reports pain is 2/10 at this time. Toradol is effective for pain control.
[2020-05-07 07:28] LABS: BACTERIA,URINE RARE /HPF; EPITHELIAL CELLS,URINE FEW /LPF; WBC,URINE (MAN) 21-50 /HPF (0-5)
[2020-05-07 07:30] LABS: ALANINE AMINOTRANSFERASE 23 IU/L (0-55); ALBUMIN 4.4 g/dL (3.5-5.0); ALBUMIN/GLOBULIN RATIO 1.5 (0.8-2.0); ALKALINE PHOSPHATASE 67 IU/L (40-150); ANION GAP 16.4 mmol/L (8-16); BLOOD UREA NITROGEN 20 mg/dL (7-26); BUN/CREATININE RATIO 26 (6-25); CALCIUM 9.1 mg/dL (8.4-10.2); CARBON DIOXIDE 22 mmol/L (22-29); CHLORIDE 109 mmol/L (98-107); CREATININE, SERUM 0.78 mg/dL (0.57-1.11); EST GLOMERULAR FILTRATION RATE > 60 ML/MIN (60-); GLUCOSE 140 mg/dL (74-118); POTASSIUM 3.4 mmol/L (3.5-5.1); SODIUM 144 mmol/L (136-145)
--- NOTE | 2020-05-07 07:49 | Emergency Department Note ---
History of Present Illnes History of Present Illness Chief Complaint: Abdominal Complaints History of Present Illness This is a 65 year old female Patient c/o left flank pain that started this morning with radiation to left lower quadrant. Patient also c/o nausea and states she vomited one time. Denies dysuria, frequency or blood in urine. States she does have history ok kidney stones. No distress noted at this time. Historian: Patient Arrival Mode: Car Raw Juice Weigher Required: No Onset (how long ago): hour(s) Location: left flank Quality: pain Radiation: Reports abdomen Severity: severe Onset quality: sudden Timing of current episode: intermittent Progression: waxing and waning Chronicity: new Context: Denies recent illness Relieving factors: none Exacerbating factors: none Associated symptoms: Reports nausea/vomiting (1 episode of vomiting) Past Medical/Family History Physician Review I have reviewed the patient's past medical and family history. Any updates have been documented here. Past Medical History Recent Fever: No Clinical Suspicion of Infectio: No New/Unexplained Change in Ment: No Past Medical History: Hepatitis C Other Medical History: herniated disc Past Surgical History: Cholecysctectomy, Hysterectomy Other Surgery: knee sx Social History Smoking Cessation: Never Smoker Counseling Performed: No Alcohol Use: Occasional Any Illegal Drug Use: No TB Exposure/Symptoms: No Physically hurt or threatened: No Family History Family history of heart diseas: No Other Any Pre-Existing Lines (PICC,: No Review of Systems Review of Systems Constitutional: Reports no symptoms EENTM: Reports no symptoms Cardiovascular: Reports no symptoms Respiratory: Reports no symptoms Gastrointestinal: Reports as per HPI Genitourinary: Reports no symptoms Musculoskeletal: Reports no symptoms Integumentary: Reports no symptoms Neurological: Reports no symptoms Psychological: Reports no symptoms Endocrine: Reports no symptoms Hematological/Lymphatic: Reports no symptoms Physical Exam Related Data Allergies: Coded Allergies: No Known Allergies (Unverified , 12/14/16) Triage Vital Signs Vital Signs Date Time Temp Pulse Resp B/P (MAP) Pulse Ox O2 Delivery O2 Flow Rate FiO2 05/07/20 06:36 98.5 76 20 174/92 99 Room Air Vital signs reviewed: Yes Physical Exam CONSTITUTIONAL Constitutional: Present well-developed, Present well-nourished HENT HENT: Present normocephalic, Present atraumatic, Present oropharynx clear/moist, Present nose normal HENT L/R: Present left ext ear normal, Present right ext ear normal EYES Eyes: Reports PERRL, Reports conjunctivae normal NECK Neck: Present ROM normal PULMONARY Pulmonary: Present effort normal, Present breath sounds normal CARDIOVASCULAR Cardiovascular: Present regular rhythm, Present heart sounds normal, Present capillary refill normal, Present normal rate GASTROINTESTINAL Abdominal: Present soft, Present nontender, Present bowel sounds normal; Absent left CVA tenderness, Absent right CVA tenderness GENITOURINARY Genitourinary: Present exam deferred SKIN Skin: Present warm, Present dry MUSCULOSKELETAL Musculoskeletal: Present ROM normal NEUROLOGICAL Neurological: Present alert, Present oriented x 3, Present no gross motor or sensory deficits PSYCHOLOGICAL Psychological: Present mood/affect normal, Present judgement normal Results Laboratory Result Diagram: 05/07/2045 05/07/20 0645 Laboratory Laboratory Tests Test 05/07/20 06:45 White Blood Count 7.10 x10e3/uL (4.8-10.8) Red Blood Count 4.74 x10e6/uL (3.6-5.1) Hemoglobin 13.0 g/dL (12.0-16.0) Hematocrit 40.7 % (34.2-44.1) Mean Corpuscular Volume 85.9 fL (81-99) Mean Corpuscular Hemoglobin 27.4 pg (28-32) Mean Corpuscular Hemoglobin Concent 31.9 g/dL (31-35) Red Cell Distribution Width 13.3 % (11.7-14.4) Platelet Count 201 x10e3/uL (140-360) Neutrophils (%) (Auto) 70.1 % (38.7-80.0) Lymphocytes (%) (Auto) 20.4 % (18.0-39.1) Monocytes (%) (Auto) 5.9 % (4.4-11.3) Eosinophils (%) (Auto) 2.7 % (0.0-6.0) Basophils (%) (Auto) 0.6 % (0.0-1.0) Neutrophils # (Auto) 5.0 (2.1-6.9) Lymphocytes # (Auto) 1.5 (1.0-3.2) Monocytes # (Auto) 0.4 (0.2-0.8) Eosinophils # (Auto) 0.2 (0.0-0.4) Basophils # (Auto) 0.0 (0.0-0.1) Absolute Immature Granulocyte (auto 0.02 x10e3/uL (0-0.1) Urine Color Yellow (YELLOW) Urine Clarity Sl cloudy (CLEAR) Urine pH 6 (5 - 7) Urine Specific Angelica 1.025 (1.010-1.025) Urine Protein Negative (NEGATIVE) Urine Glucose (UA) Negative (NEGATIVE) Urine Ketones Negative (NEGATIVE) Urine Blood Large (NEGATIVE) Urine Nitrite Negative (NEGATIVE) Urine Bilirubin Negative (NEGATIVE) Urine Urobilinogen 1 mg/dL (0.2 - 1) Urine Leukocyte Esterase Negative (NEGATIVE) Urine RBC 11-20 /HPF (0-5) Urine WBC 21-50 /HPF (0-5) Urine Epithelial Cells Few /LPF (NONE) Urine Bacteria Rare /HPF (NONE) Sodium Level 144 mmol/L (136-145) Potassium Level 3.4 mmol/L (3.5-5.1) Chloride Level 109 mmol/L (98-107) Carbon Dioxide Level 22 mmol/L (22-29) Anion Gap 16.4 mmol/L (8-16) Blood Urea Nitrogen 20 mg/dL (7-26) Creatinine 0.78 mg/dL (0.57-1.11) Estimat Glomerular Filtration Rate > 60 ML/MIN (60-) BUN/Creatinine Ratio 26 (6-25) Glucose Level 140 mg/dL (74-118) Calcium Level 9.1 mg/dL (8.4-10.2) Total Bilirubin 1.0 mg/dL (0.2-1.2) Aspartate Amino Transf (AST/SGOT) 17 IU/L (5-34) Alanine Aminotransferase (ALT/SGPT) 23 IU/L (0-55) Alkaline Phosphatase 67 IU/L (40-150) Total Protein 7.4 g/dL (6.5-8.1) Albumin 4.4 g/dL (3.5-5.0) Globulin 3.0 g/dL (2.3-3.5) Albumin/Globulin Ratio 1.5 (0.8-2.0) Lab results reviewed: Yes Imaging Imaging results reviewed: Yes Impressions EXAM: CT Abdomen and Pelvis WITHOUT intravenous contrast INDICATION: Abdominal pain, back pain COMPARISON: None. TECHNIQUE: Abdomen and pelvis were scanned utilizing a multidetector helical scanner from the lung base to the pubic symphysis without administration of IV contrast. Coronal and sagittal reformations were obtained. IV CONTRAST: None ORAL CONTRAST: None COMPLICATIONS: None RADIATION DOSE: Total DLP: 776 mGy*cm Dose modulation, iterative reconstruction, and/or weight based adjustment of the mA/kV was utilized to reduce the radiation dose to as low as reasonably achievable. FINDINGS: LOWER THORAX: Normal. HEPATOBILIARY: Diffuse hepatic steatosis. No focal liver lesion. Status post cholecystectomy. SPLEEN: No splenomegaly. PANCREAS: No focal masses or ductal dilatation. ADRENALS: No adrenal nodules. KIDNEYS/URETERS: 3mm left proximal ureteral calculus with minimal associated left hydroureteronephrosis and mild left perinephric fat stranding. No solid renal mass lesions. No additional calculi identified. No right hydronephrosis or hydroureter. PELVIC ORGANS/BLADDER: Unremarkable. PERITONEUM / RETROPERITONEUM: No free air or fluid. LYMPH NODES: No lymphadenopathy. VESSELS: Unremarkable. GI TRACT: Status post sleeve gastrectomy. No abnormal bowel thickening. No bowel obstruction. Normal appendix. BONES AND SOFT TISSUES: Three ventral abdominal wall defects containing herniated fat without bowel. No acute osseous injury. No suspicious lytic or blastic lesions. IMPRESSION: 3 mm left proximal ureteral calculus with minimal associated left hydroureteronephrosis and mild left perinephric fat stranding. Hepatic steatosis. Signed by: Sha Smith MD on 05/07/2020 8:46 AM Assessment & Plan Medical Decision Making MDM left flank pain radiating to left abdomen, non-tender on exam - cbc, chem, ua/cx, ct abd/pelvis - likely ureterolithiasis, eval renal function, electrolyte abnl, diverticulitis, sbo Reassessment Reassessment CT NOTED, ROCEPHIN IV GIVEN, PT PAIN-FREE AFTER TORADOL IV. DC HOME WITH TORADOL, TYL #3, FLOMAX, CEFTIN 500 BID X 10 DAYS, F/U PCP AND DR Susan ESCALERA Assessment & Plan Final Impression: (1) Ureterolithiasis (2) UTI (urinary tract infection) Depart Disposition: HOME, SELF-CARE Last Vital Signs Date Time Temp Pulse Resp B/P (MAP) Pulse Ox O2 Delivery O2 Flow Rate FiO2 05/07/20 07:29 67 18 143/78 97 Room Air 05/07/20 06:36 98.5 Home Meds Reported Medications Omeprazole (OMEPRAZOLE) 40 Mg Capsule.dr, MG PO DAILY 04/24/20 Sucralfate (CARAFATE) 1 Gm/10 Ml Oral.susp, 1 GM PO QID, ML 04/24/20 Acetaminophen (ACETAMINOPHEN) 325 Mg Tablet, 650 MG PO PRN for 5 Days, TAB 04/17/20 Naproxen (NAPROXEN) 250 Mg Tablet, 500 MG PO PRN, TAB 04/17/20 Medications in the ED Ondansetron HCl 4 mg ONCE STAT IV Last administered on 05/07/20at 07:03; Admin Dose 4 MG; Start 05/07/20 at 06:42; Stop 05/07/20 at 06:52; Status DC Ketorolac Tromethamine 30 mg ONCE STAT IV Last administered on 05/07/20at 07:03; Admin Dose 30 MG; Start 05/07/20 at 06:42; Stop 05/07/20 at 06:52; Status DC Sodium Chloride 1,000 ml @ 0 mls/hr Q0M STAT IV Last administered on 05/07/20at 07:03; Admin Dose 999 MLS/HR; Start 05/07/20 at 06:42; Stop 05/07/20 at 06:45; Status DC PREET KENT MD May 07, 2020 07:49
[2020-05-07] MEDS ORDERED: CEFTRIAXONE SOD 1 GM/NS 50 ML 50 ML IV ONE (08:30)
--- NOTE | 2020-05-07 08:49 | Diagnostic Imaging Report ---
EXAM: CT Abdomen and Pelvis WITHOUT intravenous contrast INDICATION: Abdominal pain, back pain COMPARISON: None. TECHNIQUE: Abdomen and pelvis were scanned utilizing a multidetector helical scanner from the lung base to the pubic symphysis without administration of IV contrast. Coronal and sagittal reformations were obtained. IV CONTRAST: None ORAL CONTRAST: None COMPLICATIONS: None RADIATION DOSE: Total DLP: 776 mGy*cm Dose modulation, iterative reconstruction, and/or weight based adjustment of the mA/kV was utilized to reduce the radiation dose to as low as reasonably achievable. FINDINGS: LOWER THORAX: Normal. HEPATOBILIARY: Diffuse hepatic steatosis. No focal liver lesion. Status post cholecystectomy. SPLEEN: No splenomegaly. PANCREAS: No focal masses or ductal dilatation. ADRENALS: No adrenal nodules. KIDNEYS/URETERS: 3mm left proximal ureteral calculus with minimal associated left hydroureteronephrosis and mild left perinephric fat stranding. No solid renal mass lesions. No additional calculi identified. No right hydronephrosis or hydroureter. PELVIC ORGANS/BLADDER: Unremarkable. PERITONEUM / RETROPERITONEUM: No free air or fluid. LYMPH NODES: No lymphadenopathy. VESSELS: Unremarkable. GI TRACT: Status post sleeve gastrectomy. No abnormal bowel thickening. No bowel obstruction. Normal appendix. BONES AND SOFT TISSUES: Three ventral abdominal wall defects containing herniated fat without bowel. No acute osseous injury. No suspicious lytic or blastic lesions. IMPRESSION: 3 mm left proximal ureteral calculus with minimal associated left hydroureteronephrosis and mild left perinephric fat stranding. Hepatic steatosis. Signed by: Sha Smith MD on 05/07/2020 8:46 AM
[2020-05-07 09:34] VITALS: BP 142/72
[2020-05-09] MEDS ORDERED: KETOROLAC TROME10 MG PO (11:39)
[2020-05-09] MEDS ORDERED: FLOMAX0.4 MG PO (11:39)
[2020-05-09] MEDS ORDERED: CEFUROXIME250 MG PO (11:39)
[2020-05-09] MEDS ORDERED: NEXIUM40 MG PO (11:39)
== END 2020-05-07 09:43 | disposition home or self-care (01) ==
LOC: ER 06:50
DX: R10.32 Left lower quadrant pain (principal); N13.2 Hydronephrosis with renal and ureteral calculous obstruction; N39.0 Urinary tract infection, site not specified; R11.2 Nausea with vomiting, unspecified; B19.20 Unspecified viral hepatitis C without hepatic coma; K76.0 Fatty (change of) liver, not elsewhere classified
CPT/HCPCS: 36415; 74176; 80053; 81001; 85025; 87086; 99284; J0696; J1885; J2405; J7030

== ENCOUNTER → 2020-05-13 | Day surgery (SDC) | payer MEDICARE, OTHER ==
--- NOTE | 2020-05-09 14:23 | Diagnostic Imaging Report ---
Exam: KUB - 2 views Indication: Preoperative Comparison: CT abdomen and pelvis of 05/07/2020 Findings: No radiographically apparent urinary calculi. Specifically, the left proximal ureteral calculus previously seen on CT of 05/07/2020 is not right iliac appreciable on this radiograph. This may be due to its small size or alternatively due to interval passage. Nonobstructive bowel gas pattern. No free air. Surgical clips in the upper abdomen. No acute osseous injury. Impression: No radiographically apparent urinary calculi. Left ureteral calculus seen on CT of 05/07/2020 may be too small to be visualized on this radiograph or alternatively may have passed. Signed by: Sha Smith MD on 05/09/2020 2:20 PM
[~2020-05-13] MED LIST changes: +B&O 60MG R/S 60 MG SUPP PR ONE; +CEFTRIAXONE SOD 1 GM/NS 50 ML 100 ML IV ONE; +CEFUROXIME250 MG PO; +DEXAMETHASONE SOD PHOS INJ 4 MG/ML VIAL ONE; +FENTANYL CITRATE/PF 100MCG/2 ML INJ ONE; +FLOMAX0.4 MG PO; +IOPAMIDOL 300MG/ML 50ML INFUS..BTL IV ONE; +KETOROLAC TROME10 MG PO; +LIDOCAINE HCL 2% LOCAL INJ 5 ML SDV VIAL INJ ONE; +MIDAZOLAM HCL 2 MG/2 ML VIAL ONE; +NEXIUM40 MG PO; +ONDANSETRON HCL INJ 2MG/ML 2ML 2 MG/ML VIAL ONE; +PROPOFOL IV EMULSION 10 MG/ML 20 ML VIAL ONE; +SEVOFLURANE INHAL SOLN 250 ML PEN BTL ONE
[2020-05-13 15:10] VITALS: BP 146/84
--- NOTE | 2020-05-31 08:51 | Operative Report ---
DATE OF PROCEDURE: 05/13/2020 SURGEON: Saul Rutherford MD PREOPERATIVE DIAGNOSES: 1. Left ureterolithiasis. 2. Left hydronephrosis due to stone. 3. Urinary tract infections. 4. Microhematuria. POSTOPERATIVE DIAGNOSES: 1. Left ureterolithiasis. 2. Left hydronephrosis due to stone. 3. Urinary tract infections. 4. Microhematuria. 5. Grade 3 to 4 cystocele. 6. Grade 1 rectocele. 7. Urethral hypermobility. 8. Atrophic (senile) vaginitis. OPERATIONS PERFORMED: 1. Cystourethroscopy with bilateral ureteral catheterization and retrograde ureteropyelography (separate procedure performed for urinary tract infections and microhematuria). 2. Interpretation of retrograde ureteropyelography, no radiologist present. 3. Supervision of fluoroscopy, no radiologist present. 4. Left ureteroscopy with stone manipulation and extraction (separate procedure performed for the diagnosis of stone). 5. Radiological services with supervision and interpretation of ureteroscopy. 6. Cystourethroscopy with insertion of left indwelling ureteral stent (separate procedure performed to relieve the hydronephrosis). 7. Pelvic examination under anesthesia. ANESTHESIA: General. COMPLICATIONS: None. CLINICAL SUMMARY: Juliann Bear is a 65-year-old woman with the above preoperative diagnoses. She is brought for the above procedures. She is aware of the risks of bleeding, infection, injury to adjacent structures, need for additional procedures, and elected to proceed. OPERATIVE PROCEDURE IN DETAIL: Informed consent was verified. Juliann Bear was properly identified, taken to the operating room, placed on the cystoscopy table in supine position. Anesthesia was uneventfully begun. The patient was then carefully and gently repositioned in the dorsal lithotomy position with all pressure points well padded. Her genitalia were prepared and draped in usual sterile fashion. The cystoscope sheath with obturator in place was atraumatically inserted into the patient's urethra and bladder was drained. Panendoscopy revealed no suspicious mucosal lesions, no tumors, no stones, and no diverticula. Ureteral catheter was used to cannulate the left ureter and retrograde ureteropyelogram was performed and was then inserted in the right ureter and retrograde ureteropyelograms were performed. The ureteroscope was then placed into the left ureter and guided to the level of the stone. The stone was then grasped with nitinol tipless basket and extracted atraumatically. With cystoscopic fluoroscopic guidance, a left-sided indwelling ureteral stent was then placed, it was coiled in the patient's kidneys as well as the patient's bladder. The retaining suture was cut short. INTERPRETATION OF RETROGRADE URETEROPYELOGRAPHY: Contrast was instilled in retrograde fashion bilaterally. The right side was unremarkable. There were no tumors, no stones, no diverticula. Unobstructed drainage was observed fluoroscopically on the left side, exhibited hydronephrosis. The stent was in good position, coiled in the patient's kidneys as well as the patient's bladder at the end of the case. The patient's bladder was drained, cystoscope was withdrawn. Pelvic examination under anesthesia revealed a grade 3 to 4 cystocele, grade 1 rectocele. There was urethral hypermobility and atrophic (senile) vaginitis. The patient was then uneventfully reversed from anesthesia and taken to recovery room in stable condition. There were no complications to the procedure. She tolerated the procedure well. PLANS: Plans will be to return the patient to the operating room in approximately a month to remove her stent, perform left ureteroscopy and hopefully render the patient stent free and stone free. MD YUDELKA Sutton/BALA /[id number]
== END | disposition home or self-care (01) ==
LOC: OR 13:06
PROVIDERS: ATTEND Urology
DX: N13.2 Hydronephrosis with renal and ureteral calculous obstruction (principal); N39.0 Urinary tract infection, site not specified; N81.10 Cystocele, unspecified; N81.6 Rectocele; N36.41 Hypermobility of urethra; N95.2 Postmenopausal atrophic vaginitis; N39.46 Mixed incontinence; G47.33 Obstructive sleep apnea (adult) (pediatric); E66.9 Obesity, unspecified; K21.9 Gastro-esophageal reflux disease without esophagitis; K44.9 Diaphragmatic hernia without obstruction or gangrene; Z01.812 Encounter for preprocedural laboratory examination; Z01.818 Encounter for other preprocedural examination; Z11.59 Encounter for screening for other viral diseases; Z68.41 Body mass index [BMI] 40.0-44.9, adult; Z84.1 Family history of disorders of kidney and ureter
CPT/HCPCS: 36415; 52332; 52352; 74018; 74420; 83970; 84550; 88300; C1758; C1769; C2617; J0696; J1100; J2001; J2250; J2405; J2704; J3010; Q9967; U0002

== ENCOUNTER → 2020-06-18 | Outpatient (CLI) | payer MEDICARE, OTHER ==
[~2020-06-18] MED LIST changes: -B&O 60MG R/S 60 MG SUPP PR ONE; -CEFTRIAXONE SOD 1 GM/NS 50 ML 100 ML IV ONE; -DEXAMETHASONE SOD PHOS INJ 4 MG/ML VIAL ONE; -FENTANYL CITRATE/PF 100MCG/2 ML INJ ONE; -IOPAMIDOL 300MG/ML 50ML INFUS..BTL IV ONE; -LIDOCAINE HCL 2% LOCAL INJ 5 ML SDV VIAL INJ ONE; -MIDAZOLAM HCL 2 MG/2 ML VIAL ONE; -ONDANSETRON HCL INJ 2MG/ML 2ML 2 MG/ML VIAL ONE; -PROPOFOL IV EMULSION 10 MG/ML 20 ML VIAL ONE; -SEVOFLURANE INHAL SOLN 250 ML PEN BTL ONE
--- NOTE | 2020-06-18 13:03 | Diagnostic Imaging Report ---
TECHNIQUE: 2 frontal images of the abdomen. HISTORY: ^[id number] ^5 ^CALCULUS OF KIDNEY. COMPARISON: None. IMPRESSION: Nonobstructive radiographic bowel gas pattern. No acute bony abnormality. No free air within the imaged abdomen. Left unilateral double-J stents. No radiopaque stones overlying the renal shadows. Surgical clips overlying the right upper quadrant and left diaphragm. Signed by: Deepak Morrow MD on 06/18/2020 1:00 PM
== END ==
LOC: RAD 12:19
PROVIDERS: ATTEND Urology
DX: N20.0 Calculus of kidney (principal)
CPT/HCPCS: 74018

== ENCOUNTER 2020-06-28 20:10 | Emergency (ER) | payer MEDICARE, OTHER ==
[~2020-06-28] VITALS: Ht 154.9 cm; Wt 94.3 kg
[~2020-06-28 20:10] MED LIST changes: -ACETAMINOPHEN/CODEINE 300MG - 30MG TAB ONE; -B&O 60MG R/S 60 MG SUPP PR ONE; -CEFTRIAXONE SOD 1 GM/NS 50 ML 50 ML IV ONE; -DEXAMETHASONE SOD PHOS INJ 4 MG/ML VIAL ONE; -FENTANYL CITRATE/PF 100MCG/2 ML INJ ONE; -HYDROMORPHONE 1MG/1ML INJ ONE; -IOPAMIDOL 300MG/ML 50ML INFUS..BTL IV ONE; -LIDOCAINE HCL 2% LOCAL INJ 5 ML SDV VIAL INJ ONE; -MACROBID 100 M100 MG PO; -MIDAZOLAM HCL 2 MG/2 ML VIAL ONE; -ONDANSETRON HCL INJ 2MG/ML 2ML 2 MG/ML VIAL ONE; -ONDANSETRON ODT8 MG PO; -PREDNISONE20 MG PO; -PROPOFOL IV EMULSION 10 MG/ML 20 ML VIAL ONE; -SEVOFLURANE INHAL SOLN 250 ML PEN BTL ONE; -ULTRAM50 MG PO
[2020-06-28] MEDS ORDERED: MORPHINE SULFATE INJ 4 MG/ML INJ 1ML IM STA (21:09)
[2020-06-28] MEDS ORDERED: KETOROLAC TROMETHAMINE 60 MG/2 ML VIAL IM ONE (21:15)
[2020-06-28] MEDS ORDERED: ONDANSETRON HCL 4 MG ORAL DISINTEGRATING TAB PO ONE (21:15)
[2020-06-28] MEDS ORDERED: ONDANSETRON HCL 4 MG ORAL DISINTEGRATING TAB ONE (21:22)
[2020-06-28] MEDS ORDERED: MORPHINE SULFATE INJ 4 MG/ML INJ 1ML ONE (21:22)
[2020-06-28] MEDS ORDERED: KETOROLAC TROMETHAMINE 60 MG/2 ML VIAL ONE (21:22)
--- NOTE | 2020-06-28 23:03 | Diagnostic Imaging Report ---
EXAM: CT Abdomen WITHOUT contrast INDICATION: PAIN COMPARISON: None. TECHNIQUE: Abdomen was scanned utilizing a multidetector helical scanner from the lung base to the iliac crest without administration of IV contrast. Absence of intravenous contrast decreases sensitivity for detection of focal lesions and vascular pathology. Coronal and sagittal reformations were obtained. Routine protocol was performed. IV CONTRAST: None ORAL CONTRAST: Water COMPLICATIONS: None FINDINGS: LINES and TUBES: None. LOWER THORAX: Unremarkable HEPATOBILIARY: The liver is diffuse hypodense compared to the spleen, consistent with diffuse hepatic diffuse hepatic steatosis. No focal hepatic lesions. No biliary ductal dilation. GALLBLADDER: There are cholecystectomy clips. SPLEEN: No splenomegaly. PANCREAS: No focal masses or ductal dilatation. ADRENALS: No adrenal nodules KIDNEYS/URETERS: Left perinephric fat stranding and distention of the renal pelvis. Marked fat stranding along the course of the left ureter. Contrast from recent pyelogram remains within the left renal pelvis and ureter. Interval removal of a left ureteral stent. Phlebolith in the left hemipelvis. No ureteral calculi. Tiny punctate nonobstructing right intrarenal calculus. GI TRACT: No abnormal distention, wall thickening, or evidence of bowel obstruction. Evidence of prior bariatric surgery. Mild colonic diverticulosis without evidence of acute diverticulitis. LYMPH NODES: No lymphadenopathy. VESSELS: Unremarkable. PERITONEUM / RETROPERITONEUM: No free air or fluid. BONES: Unremarkable. SOFT TISSUES: There is a fat containing para-umbilical hernia. IMPRESSION: 1. Left perinephric and periureteral fat stranding and mild hydronephrosis. No urinary tract calculi identified. Residual contrast from recent retrograde pyelogram within the left renal pelvis, left ureter, and bladder. Findings may represent a nonvisualized recently passed calculus, although pyelonephritis could have a similar appearance. Underlying distal ureteral or bladder lesion not excluded. 2. Hepatic steatosis. 3. Diverticulosis without evidence of acute diverticulitis. Signed by: Foster Pérez MD on 06/28/2020 11:00 PM
[2020-06-28] MEDS ORDERED: METHYLPREDNISOLONE SOD SUCC 125 MG/2ML VIAL ONE (23:26)
[2020-06-28] MEDS ORDERED: PROMETHAZINE HCL (IM) 25 MG/ML VIAL IM ONE (23:26)
[2020-06-28] MEDS ORDERED: MACROBID 100 M100 MG PO (23:27)
[2020-06-28] MEDS ORDERED: ULTRAM50 MG PO (23:27)
[2020-06-28] MEDS ORDERED: PREDNISONE20 MG PO (23:27)
[2020-06-28] MEDS ORDERED: ONDANSETRON ODT8 MG PO (23:27)
--- NOTE | 2020-06-28 23:27 | Emergency Department Note ---
History of Present Illnes History of Present Illness Chief Complaint: left lbp s/p ureteral stent removal History of Present Illness This is a 65 year old female . Historian: Patient Arrival Mode: Car History limited by: condition of the patient (normal) Ingot Passer Required: No Onset (how long ago): hour(s) (7) Location: see above Quality: sharp Radiation: Reports flank (left) Severity: severe Onset quality: gradual Duration (how long): hour(s) (7) Timing of current episode: constant Progression: worsening Chronicity: new Context: Reports recent surgery Relieving factors: none Exacerbating factors: movement Associated symptoms: Reports malaise, Reports nausea/vomiting Treatments prior to arrival: none Past Medical/Family History Physician Review I have reviewed the patient's past medical and family history. Any updates have been documented here. Past Medical History Recent Fever: No Clinical Suspicion of Infectio: No New/Unexplained Change in Ment: No Past Medical History: Hepatitis C Other Medical History: herniated disc Past Surgical History: Cholecysctectomy, Hysterectomy Other Surgery: knee sx Social History Physically hurt or threatened: No Family History Family history of heart diseas: No Other Any Pre-Existing Lines (PICC,: No Is patient up to date on immun: No Review of Systems Review of Systems Constitutional: Reports no symptoms EENTM: Reports no symptoms Cardiovascular: Reports no symptoms Respiratory: Reports no symptoms Gastrointestinal: Reports as per HPI Genitourinary: Reports no symptoms Musculoskeletal: Reports as per HPI Integumentary: Reports no symptoms Neurological: Reports no symptoms Psychological: Reports no symptoms Endocrine: Reports no symptoms Hematological/Lymphatic: Reports no symptoms Review of other systems: All other systems negative Physical Exam Related Data Allergies: Coded Allergies: No Known Allergies (Unverified , 12/14/16) Triage Vital Signs Vital Signs Date Time Temp Pulse Resp B/P (MAP) Pulse Ox O2 Delivery O2 Flow Rate FiO2 06/28/20 20:30 98.6 67 18 166/90 97 Room Air Vital signs reviewed: Yes Physical Exam CONSTITUTIONAL Constitutional: Present well-developed, Present well-nourished HENT HENT: Present normocephalic, Present atraumatic, Present oropharynx clear/moist, Present nose normal HENT L/R: Present left ext ear normal, Present right ext ear normal EYES Eyes: Reports PERRL, Reports conjunctivae normal NECK Neck: Present ROM normal, Present supple PULMONARY Pulmonary: Present effort normal, Present breath sounds normal CARDIOVASCULAR Cardiovascular: Present regular rhythm, Present heart sounds normal, Present capillary refill normal, Present normal rate GASTROINTESTINAL Abdominal: Present soft, Present nontender, Present bowel sounds normal GENITOURINARY Genitourinary: Present exam deferred SKIN Skin: Present warm, Present dry MUSCULOSKELETAL Musculoskeletal: Present ROM normal, Present tenderness (left cva) NEUROLOGICAL Neurological: Present alert, Present oriented x 3, Present no gross motor or sensory deficits PSYCHOLOGICAL Psychological: Present mood/affect normal, Present judgement normal Results Imaging Imaging results reviewed: Yes Impressions [facility] [address] [address] Patient Name: GINA ENGEL MR #: [id number] : 1955 Age/Sex: 65/F Req #: [id number] Adm Physician: Ordered by: KYLE VALENCIA Report #: [id number] Location: [facility] Room/Bed: Procedure: [id number] HOPD/CT ABD/PEL WO CONTRAST-HOPD Exam Date: 06/28/20 Exam Time: 2122 REPORT STATUS: Signed EXAM: CT Abdomen WITHOUT contrast INDICATION: PAIN COMPARISON: None. TECHNIQUE: Abdomen was scanned utilizing a multidetector helical scanner from the lung base to the iliac crest without administration of IV contrast. Absence of intravenous contrast decreases sensitivity for detection of focal lesions and vascular pathology. Coronal and sagittal reformations were obtained. Routine protocol was performed. IV CONTRAST: None ORAL CONTRAST: Water COMPLICATIONS: None FINDINGS: LINES and TUBES: None. LOWER THORAX: Unremarkable HEPATOBILIARY: The liver is diffuse hypodense compared to the spleen, consistent with diffuse hepatic diffuse hepatic steatosis. No focal hepatic lesions. No biliary ductal dilation. GALLBLADDER: There are cholecystectomy clips. SPLEEN: No splenomegaly. PANCREAS: No focal masses or ductal dilatation. ADRENALS: No adrenal nodules KIDNEYS/URETERS: Left perinephric fat stranding and distention of the renal pelvis. Marked fat stranding along the course of the left ureter. Contrast from recent pyelogram remains within the left renal pelvis and ureter. Interval removal of a left ureteral stent. Phlebolith in the left hemipelvis. No ureteral calculi. Tiny punctate nonobstructing right intrarenal calculus. GI TRACT: No abnormal distention, wall thickening, or evidence of bowel obstruction. Evidence of prior bariatric surgery. Mild colonic diverticulosis without evidence of acute diverticulitis. LYMPH NODES: No lymphadenopathy. VESSELS: Unremarkable. PERITONEUM / RETROPERITONEUM: No free air or fluid. BONES: Unremarkable. SOFT TISSUES: There is a fat containing para-umbilical hernia. IMPRESSION: 1. Left perinephric and periureteral fat stranding and mild hydronephrosis. No urinary tract calculi identified. Residual contrast from recent retrograde pyelogram within the left renal pelvis, left ureter, and bladder. Findings may represent a nonvisualized recently passed calculus, although pyelonephritis could have a similar appearance. Underlying distal ureteral or bladder lesion not excluded. 2. Hepatic steatosis. 3. Diverticulosis without evidence of acute diverticulitis. Signed by: Osmel Guallpa MD on 06/28/2020 11:00 PM Dictated By: OSMEL GUALLPA MD 99 Transcribed By: NEGRA on 06/28/202299 COPY TO: KYLE VALENCIA~ Critical Care Time Comments [place] [employer] OVERDOSE RISK [id number] Assessment & Plan Medical Decision Making MDM see below Reassessment Reassessment time: 22:30 Reassessment pain better but n/v Assessment & Plan Final Impression: (1) Pyelonephritis Depart Disposition: HOME, SELF-CARE Last Vital Signs Date Time Temp Pulse Resp B/P (MAP) Pulse Ox O2 Delivery O2 Flow Rate FiO2 06/28/20 20:30 98.6 67 18 166/90 97 Room Air Home Meds Active Scripts Nitrofurantoin Monohyd/M-Cryst (MACROBID 100 MG CAPSULE) 100 Mg Capsule, 100 MG PO BIDWM, #20 CAP Prov:KYLE VALENCIA 10/30/20 Tramadol Hcl (ULTRAM) 50 Mg Tablet, 50 MG PO Q4HR PRN for SEVERE PAIN (7-10), #30 TAB TAKE AFTER PREDNISONE TO CONTROL PAIN IF NEED BE Prov:KYLE VALENCIA 06/28/20 Prednisone (PREDNISONE) 20 Mg Tab, 60 MG PO DAILY PRN for MODERATE PAIN (4-6), #15 TAB take all 3 20 mg pills at once PRN PAIN Prov:KYLE VALENCIA 06/28/20 Ondansetron (ONDANSETRON ODT) 8 Mg Tab.rapdis, 8 MG PO Q6H PRN for NAUSEA AND VOMITING, #20 TAB 2 Refills Prov:KYLE VALENCIA 06/28/20 Reported Medications Acetaminophen/Codeine* (TYLENOL # 3*) 1 Ea Tab 06/28/20 Pumpkin Seed Extract/Soy Germ (Azo Bladder Control Capsule) 300 Mg Capsule, 600 MG PO BID 06/25/20 Omeprazole (OMEPRAZOLE) 40 Mg Capsule.dr, 40 MG PO DAILY 04/24/20 Acetaminophen (ACETAMINOPHEN) 325 Mg Tablet, 650 MG PO PRN for 5 Days, TAB 04/17/20 Discontinued Reported Medications Tamsulosin Hcl* (FLOMAX*) 0.4 Mg Cap, 0.4 MG PO PRN, #30 CAP 06/25/20 Ciprofloxacin Hcl (CIPRO) 500 Mg Tablet, 250 MG PO Q12H, #30 TAB 06/25/20 Esomeprazole Magnesium (NEXIUM) 40 Mg Capsule.dr, 40 MG PO DAILY, CAP PROTONIX [facility]APE[facility] FOR NEXIUM PER [facility] 05/09/20 Cefuroxime Axetil (CEFUROXIME) 250 Mg Tablet, 40 MG PO DAILY, TAB 05/09/20 Tamsulosin Hcl* (FLOMAX*) 0.4 Mg Cap, 0.4 MG PO DAILY, #30 CAP 05/09/20 Ketorolac Tromethamine (TORADOL) 10 Mg Tablet, 10 MG PO Q8H PRN for ABDOMINAL PAIN 05/09/20 Sucralfate (CARAFATE) 1 Gm/10 Ml Oral.susp, 1 GM PO QID, ML 04/24/20 Medications in the ED Ketorolac Tromethamine 60 mg ONCE ONCE IM Last administered on 06/28/20at 21:18; Admin Dose 60 MG; Start 06/28/20 at 21:15; Stop 06/28/20 at 21:16; Status DC Morphine Sulfate 4 mg ONCE STAT IM Last administered on 06/28/20at 21:18; Admin Dose 4 MG; Start 06/28/20 at 21:09; Stop 06/28/20 at 21:15; Status DC Ondansetron HCl 4 mg ONCE ONCE PO Last administered on 06/28/20at 21:18; Admin Dose 4 MG; Start 06/28/20 at 21:15; Stop 06/28/20 at 21:16; Status DC Ondansetron HCl 4 mg STK-MED ONCE .ROUTE ; Start 06/28/20 at 21:22; Stop 06/28/20 at 21:18; Status DC Ketorolac Tromethamine 60 mg STK-MED ONCE .ROUTE ; Start 06/28/20 at 21:22; Stop 06/28/20 at 21:18; Status DC Morphine Sulfate 4 mg STK-MED ONCE .ROUTE ; Start 06/28/20 at 21:22; Stop 06/28/20 at 21:18; Status DC KYLE VALENCIA Jun 28, 2020 23:27
--- OUTSIDE RECORDS SUMMARY | 2020-07-04 18:16 | XMS REPORT | Continuity of Care Document ---
Author Author [facility] t Organization [facility] Address [address] [place] [address] Phone Unavailable Care Team Providers Care Weathercaster Name Role Phone NONSTAFF PCP Unavailable Kirsten VALENCIA Attphys Unavailable HAMPEKirsten, KAREN Attphys Unavailable Mika KENT Attphys Unavailable La CASTAÑEDA Attphys Unavailable Tyrel MONTANEZ Attphys Unavailable Anmol Echols Attphys ADRIAN MARTINEZ Attphys Unavailable Payers Payer Name Policy Type Policy Number Effective Date Expiration Date [facility]ri [facility] [id number] 2016 00:00:00 [facility] Medicare A & B [id number] 2016 00:00:00 [facility] BCBSBCBS OUT OF [id number] 2016-PresentPPO [id number] 2016 00:00:00 [facility] CIGNACIGNA OPEN ACCESS/[id number]/08/2016-PresentO [id number] 2016 00:00:00 [facility] [id number] 2016 00:00:00 [facility] Problems Condition Name Condition Details Condition Category Status Onset Date Resolution Date Last Treatment Date Treating Clinician Comments Source Calculus of ureter Problem Active [facility] Urinary tract infection Problem Active [facility] Allergies, Adverse Reactions, Alerts This patient has no known allergies or adverse reactions. Family History Family Member Diagnosis Comments Start Date Stop Date Source Natural father Stroke [facility] Natural mother Dementia [facility] Social History Social Habit Start Date Stop Date Quantity Comments Source Sex Assigned [facility] Tobacco use and exposure 2019-07-10 00:00:00 2019-07-10 00:00:00 Neve r used [facility] Fernandez Smoking Status Start Date Stop Date Source Never smoker Hong baird Medications Ordered Medication Name Filled Medication Name Start Date Stop Da te Current Medication? Ordering Clinician Indication Dosage Frequency Signature (SIG) Comments Components Source meloxicam (MOBIC) 15 mg tablet 2019-07-10 10:27:43 Yes 15mg QD Take 15 mg by mouth daily. [facility] Fernandez Acetaminophen Acetaminophen Yes 650 As Needed [facility] Naproxen Naproxen Yes 500 As Needed [facility] Omeprazole Omeprazole Yes Daily [facility] Sucralfate (Carafate) 1 Gm/10 Ml ORAL.SUSP Sucralfate (Carafate) 1 Gm/10 Ml ORAL.SUSP Yes 1 Four Times Daily [facility] Cholecalciferol (Vitamin D) 400 Unit TAB Cholecalcifer ol (Vitamin D) 400 Unit TAB 2020-04-17 00:00:00 No [facility] Vital Signs Vital Name Observation Time Observation Value Comments Source Body Temperature 2020-05-07 09:34:00 97.9 [degF] [facility] Weight 2020-05-07 06:36:00 212 [lb_av] [facility] BMI (Body Mass Index) 2020-05-07 06:36:00 40.1 kg/m2 [facility] Systolic blood pressure 2019-07-10 10:26:00 153 mm[Hg] Hong Fernandez Diastolic blood pressure 2019-07-10 10:26:00 79 mm[Hg] [facility] Fernandez Heart rate 2019-07-10 10:26:00 63 /min Hong Fernandez Body height 2019-07-10 10:26:00 154.9 cm Hong Fernandez Body weight 2019-07-10 10:26:00 95.255 kg Hong Jonesist BMI 2019-07-10 10:26:00 39.68 kg/m2 [place] Procedures Procedure Date / Time Performed Performing Clinician Karl rojas CT of abdomen and pelvis without contrast 2020-05-07 00:00:00 [facility] X-ray of chest, two views 2020-04-19 00:00:00 [facility] MRI jnt of lwr extre w/o dye 2020-04-05 00:00:00 [facility] Magnetic resonance imaging of lumbar spine without contrast 2020-04-05 00:00:00 [facility] POC URINALYSIS DIPSTICK 2019-07-10 10:32:00 Tiara Moralez Plan of Care Planned Activity Planned Date Details Comments Source Future Scheduled Test 2020-03-30 00:00:00 INFLUENZA VACCINE [code = INFLUENZA VACCINE] [facility] Scheduled Test 2019 00:00:00 65+ PNEUMOCOCCAL V ACCINE (1 of 1 - PPSV23) [code = 65+ PNEUMOCOCCAL VACCINE (1 of 1 - PPSV23)] [facility] Future Scheduled Test 2004 00:00:00 BREAST CANCER SCRE ENING [code = BREAST CANCER SCREENING] [facility] Future Scheduled Test 2004 00:00:00 COLONOSCOPY SCREEN ING [code = COLONOSCOPY SCREENING] [facility] Scheduled Test 2004 00:00:00 SHINGLES VACCINES (#1) [code = SHINGLES VACCINES (#1)] [facility] Instructions Kidney Stones [facility] Instructions Urinary Tract Infection - Pediatric [facility] Encounters Start Date/Time End Date/Time Encounter Type Admission Type [facility] Facility Care Department Encounter ID Source 2020-05-07 06:50:00 2020-05-07 06:50:00 Registered Emergency Room 1 PREET KENT [facility] [id number] [facility] 2020-04-24 07:37:00 2020-04-24 07:37:00 Registered Surgical Day Car e 3 DAVID CASTAÑEAD [facility] [id number] [facility] 2020-04-05 08:56:00 2020-04-05 08:56:00 Registered Clinic 3 DAVID CASTAÑEDA [facility] [id number] [facility] 2019-07-25 10:21:00 2019-07-25 10:21:00 Registered Clinic 3 CAROLE MONTANEZ [facility] [id number] [facility] 2019-05-22 15:00:00 2019-05-29 23:59:00 Discharged Recurring [facility] [id number] [facility] 2019-05-16 08:27:00 2019-05-16 08:27:00 Registered Clinic [facility] [id number] [facility] 2019-01-05 09:49:00 2019-01-05 09:49:00 Registered Clinic 3 DAVID CASTAÑEDA [facility] [id number] [facility] 2018-10-04 13:17:00 2018-10-27 23:59:00 Discharged Recurring [facility] [id number] [facility] 2018-09-27 13:06:00 2018-09-29 23:59:00 Discharged Recurring [facility] [id number] [facility] 2018-09-29 12:41:00 2018-09-29 12:41:00 Registered Clinic [facility] [id number] [facility] 2018-09-26 20:30:00 2018-09-26 20:30:00 Registered Clinic [facility] [id number] [facility] 2018-09-26 18:43:00 2018-09-26 18:43:00 Registered Clinic [facility] [id number] [facility] 2018-04-14 12:46:00 2018-04-14 12:46:00 Registered Clinic 3 ADRIAN HICKS [facility] [id number] [facility] 2017-12-17 13:41:00 2017-12-17 13:41:00 Registered Clinic ADRIAN DAVIDSON [facility] [id number] [facility] Results Test Description Test Time Test Comments Results Result Comments Source CT ABD/PEL WO CONTRAST-HOPD 2020-06-28 22:43:00 [facility] 1955 Sex: F [place] [address] Patient Name: GINA ENGEL MR #: [id number] : 1955 Age/Sex: 65/F Req #: [id number] Adm Physician: Ordered by: KYLE VALENCIA Report #: [id number] Location: [facility] Room/Bed: Procedure: [id number] HOPD/CT ABD/PEL WO CONTRAST-HOPD Exam Date: 06/28/20 Exam Time: 2122 REPORT STATUS: Signed EXAM: CT Abdomen WITHOUT contrast INDICATION: PAIN COMPARISON: None. TECHNIQUE: Abdomen was scanned utilizing a multidetector helical scanner from the lung base to the iliac crest without administration of IV contrast. Absence of intravenous contrast decreases sensitivity for detection of focal lesions and vascular pathology. Coronal and sagittal reformations were obtained. Routine protocol was performed. IV CONTRAST: None ORAL CONTRAST: Water COMPLICATIONS: None FINDINGS: LINES and TUBES: None. LOWER THORAX: Unremarkable HEPATOBILIARY: The liver is diffuse hypodense hallie red to the spleen, consistent with diffuse hepatic diffuse hepatic steatosis. No focal hepatic lesions. No biliary ductal dilation. GALLBLADDER: There are cholecystectomy clips. SPLEEN: No splenomegaly. PANCREAS: No focal masses or ductal dilatation. ADRENALS: No adrenal nodules KIDNEYS/URETERS: Left perinephric fat stranding and distention of the renal pelvis. Marked fat stranding along the course of the left ureter. Contrast from recent pyelogram remains within the left renal pelvis and ureter. Interval removal of a left ureteral stent. Phlebolith in the left hemipelvis. No ureteral calculi. Tiny punctate nonobstructing right intrarenal calculus. GI TRACT: No abnormal distention, wall thickening, or evidence of bowel obstruction. Evidence of prior bariatric surgery. Mild colonic diverticulosis without evidence of acute diverticulitis. LYMPH NODES: No lymphadenopathy. VESSELS: Unremarkable. PERITONEUM / RETROPERITONEUM: No free air or fluid. BONES: Unremarkable. SOFT TISSUES: There is a fat containing para-umbilical hernia. IMPRESSION: 1. Left perinephric and periureteral fat stranding and mild hydronephrosis. No urinary tract calculi identified. Residual contrast from recent retrograde pyelogram within the left renal pelvis, left ureter, and bladder. Findings may represent a nonvisualized recently passed calculus, although pyelonephritis could have a similar appearance. Underlying distal ureteral or bladder lesion not excluded. 2. Hepatic steatosis. 3. Diverticulosis without evidence of acute diverticulitis. Signed by: Osmel Pérez MD on 06/28/2020 11:00 PM Dictated By: OSMEL PÉREZ MD 99 Transcribed By: NEGRA on 06/28/202299 COPY TO: KYLE VALENCIA ABDOMEN-1VIEW (KUB) 2020-06-18 12:59:00 [facility] 1955 Sex: F [facility] [address] [address] Patient Name: GINA ENGEL MR #: [id number] : 1955 Age/Sex: 65/F Req #: [id number] Adm Physician: Ordered by: KAREN ESCALERA MD Report #: [id number] Location: [facility] Room/Bed: Procedure: [id number] DX/ABDOMEN-1VIEW (KUB) Exam Date: 06/18/20 Exam Time: 1215 REPORT STATUS: Signed TECHNIQUE: 2 frontal images of the abdomen. HISTORY: [id number] CALCULUS OF KIDNEY. COMPARISON: None. IMPRESSION: Nonobstructive radiographic bowel gas pattern. No acute bony abnormality. No free air within the imaged abdomen. Left unilateral double-J stents. No radiopaque stones overlying the renal shadows. Surgical clips overlying the right upper quadrant and left diaphragm. Signed by: Deepak Hyde MD on 06/18/2020 1:00 PM Dictated By: DEEPAK HYDE DO 1300 Transcribed By: NEGRA on 06/18/20 1300 COPY TO: KAREN ESCALERA MD ABDOMEN-1VIEW (KUB) 2020-05-09 14:17:00 [place] [address] Patient Name: GINA ENGEL MR #: [id number] : 1955 Age/Sex: 65/F Req #: [id number] Adm Physician: Ordered by: KAREN ESCALERA MD Report #: [id number] Location: OR Room/Bed: Procedure: [id number] DX/ABDOMEN-1VIEW (KUB) Exam Date: 05/09/20 Exam Time: 1355 REPORT STATUS: Signed Exam: KUB - 2 views Indication: Preoperative Comparison: CT abdomen and pelvis of 05/07/2020 Findings: No radiographically apparent urinary calculi. Specifically, the left proximal ureteral calculus previously seen on CT of 05/07/2020 is not right iliac appreciable on this radiograph. This may be due to its small size or alternatively due to interval passage. Nonobstructive bowel gas pattern. No free air. Surgical clips in the upper abdomen. No acute osseous injury. Impression: No radiographically apparent urinary calculi. Left ureteral calculus seen on CT of 05/07/2020 may be too small to be visualized on this radiograph or alternatively may have passed. Signed by: Richmond Frederick MD on 05/09/2020 2:20 PM Dictated By: RICHMOND FREDERICK MD 1420 Transcribed By: NEGRA on 05/09/20 142 COPY TO: KAREN ESCALERA MD CT ABDOMEN/PELVIS WO 2020-05-07 08:37:00 [place] [address] Patient Name: GINA ENGEL MR #: [id number] : 1955 Age/Sex: 65/F Req #: [id number] [facility] Physician: Ordered by: PREET KENT MD Report #: [id number] Location: ER Room/Bed: Procedure: [id number] CT/CT ABDOMEN/PELVIS WO Exam Date: 05/07/20 Exam Time: 0738 REPORT STATUS: Signed EXAM: CT Abdomen and Pelvis WITHOUT intravenous contrast INDICATION: Abdominal pain, back pain COMPARISON: None. TECHNIQUE: Abdomen and pelvis were scanned utilizing a multidetector helical scanner from the lung base to the pubic symphysis without administration of IV contrast. Coronal and sagittal reformations were obtained. IV CONTRAST: None ORAL CONTRAST: None COMPLICATIONS: None RADIATION DOSE: Total DLP: 776 mGy*cm Dose modulation, iterative reconstruction, and/or weight based adjustment of the mA/kV was utilized to reduce the radiation dose to as low as reasonably achievable. FINDINGS: LOWER THORAX: Normal. HEPATOBILIARY: Diffuse hepatic steatosis. No focal liver lesion. Status post cholecystectomy. SPLEEN: No splenomegaly. PANCREAS: No focal masses or ductal dilatation. ADRENALS: No adrenal nodules. KIDNEYS/URETERS: 3mm left proximal ureteral calculus with minimal associated left hydroureteronephrosis and mild left perinephric fat stranding. No solid renal mass lesions. No additional calculi identified. No right hydronephrosis or hydroureter. PELVIC ORGANS/BLADDER: Unremarkable. PERITONEUM / RETROPERITONEUM: No free air or fluid. LYMPH NODES: No lymphadenopathy. VESSELS: Unremarkable. GI TRACT: Status post sleeve gastrectomy. No abnormal bowel thickening. No bowel obstruction. Normal appendix. BONES AND SOFT TISSUES: Three ventral abdominal wall defects containing herniated fat without bowel. No acute osseous injury. No suspicious lytic or blastic lesions. IMPRESSION: 3 mm left proximal ureteral calculus with minimal associated left hydroureteronephrosis and mild left perinephric fat stranding. Hepatic steatosis. Signed by: Richmond Frederick MD on 05/07/2020 8:46 AM Dictated By: RICHMOND FREDERICK MD 5 Transcribed By: NEGRA on 05/07/20845 COPY TO: PREET KENT MD Blood leukocytes automated count (number/volume) 2020-05-07 06:45:00 Test Item White Blood Count (test code = 6690-2) 7.10 4.8-10.8 [facility] count (number/volume)2020-05-07 06:45:00* Test Item Value Reference Range Interpretation Comments Red Blood Count (test code = 789-8) 4.74 3.6-5.1 [facility] hemoglobin measurement (moles/volume)2020-05-07 06:45:00* Test Item Value Reference Range Interpretation Comments Hemoglobin (test code = 83197-6) 13.0 12.0-16.0 [facility] blood hematocrit (volume fraction)2020-05-07 06:45:00* Test Item Value Reference Range Interpretation Comments Hematocrit (test code = 4544-3) 40.7 34.2-44.1 [facility] erythrocyte mean corpuscular izxiyg2152-08-54 06:45:00* Test Item Value Reference Range Interpretation Comments Mean Corpuscular Volume (test code = 787-2) 85.9 81-99 [facility] eryth[facility] mean corpuscular hemoglobin (mass per erythrocyte)2020-05-07 06:45:00* Test Item Value Reference Range Interpretation Comments Mean Corpuscular Hemoglobin (test code = 785-6) 27.4 28-32 [facility] erythrocyte mean corpuscular hemoglobin concentration measurement (mass/volume)2020-05-07 06:45:00* Test Item Value Reference Range Interpretation Comments Mean Corpuscular Hemoglobin Concent (test code = 786-4) 31.9 31-35 [facility]iscoRDW DerIf-Ahz9388-58-08 06:45:00* Test Item Value Reference Range Interpretation Comments Red Cell Distribution Width (test code = 54593-3) 13.3 11.7 -14.4 [facility] blood platelet count (count/volume)2020-05-07 06:45:00* Test Item Value Reference Range Interpretation Comments Platelet Count (test code = 777-3) 201 140-360 [facility]iscoAutom[facility] blood segmented neutrophil count as percentage of total axjjbihnmy9593-48-44 06:45:00* Test Item Value Reference Range Interpretation Comments Neutrophils (%) (Auto) (test code = 25007-2) 70.1 38.7-80.0 [facility] blood lymphocyte count as percentage ot total ovobqjyged9357-15-45 06:45:00* Test Item Value Reference Range Interpretation Comments Lymphocytes (%) (Auto) (test code = 736-9) 20.4 18.0-39.1 [facility] blood monocyte count as percentage of total cioznvrxpi7293-54-40 06:45:00* Test Item Value Reference Range Interpretation Comments Monocytes (%) (Auto) (test code = 5905-5) 5.9 4.4-11.3 [facility] blood eosinophil count as percentage of total pewvzfdntk8425-79-97 06:45:00* Test Item Value Reference Range Interpretation Comments Eosinophils (%) (Auto) (test code = 713-8) 2.7 0.0-6.0 [facility] blood basophil count as percentage of total uwbinrrgeb5748-80-52 06:45:00* Test Item Value Reference Range Interpretation Comments Basophils (%) (Auto) (test code = 706-2) 0.6 0.0-1.0 [facility]iscoFluoroscopic procedure less than one hour mtepxhir5608-82-96 06:45:00* Test Item Value Reference Range Interpretation Comments IM GRANULOCYTES % (test code = IM GRANULOCYTES %) 0.3 0.0- 1.0 [facility] blood neutrophil count 2020-05-07 06:45:00* Test Item Value Reference Range Interpretation Comments Neutrophils # (Auto) (test code = 751-8) 5.0 2.1-6.9 [facility] lymphocytes count (number/volume) 2020-05-07 06:45:00* Test Item Value Reference Range Interpretation Comments Lymphocytes # (Auto) (test code = 15229-7) 1.5 1.0-3.2 [facility] monocytes automated count (number/volume)2020-05-07 06:45:00* Test Item Value Reference Range Interpretation Comments Monocytes # (Auto) (test code = 742-7) 0.4 0.2-0.8 [facility] blood eosinophil count 2020-05-07 06:45:00* Test Item Value Reference Range Interpretation Comments Eosinophils # (Auto) (test code = 711-2) 0.2 0.0-0.4 [facility] blood basophil count (count/volume)2020-05-07 06:45:00* Test Item Value Reference Range Interpretation Comments Basophils # (Auto) (test code = 704-7) 0.0 0.0-0.1 [facility]iscoFluoroscopic procedure less than one hour eiksbnde2734-35-84 06:45:00* Test Item Value Reference Range Interpretation Comments Absolute Immature Granulocyte (auto (ramona t code = Absolute Immature Granulocyte (auto) 0.02 0-0.1 [facility]Urine color uefvchoskzocw3947-62-16 06:45:00* Test Item Value Reference Range Interpretation Comments Urine Color (test code = 5778-6) YELLOW YELLOW [facility]iscoUrine rfprzys3536-65-04 06:45:00* Test Item Value Reference Range Interpretation Comments Urine Clarity (test code = 82938-2) SL CLOUDY CLEAR [facility]iscopecific gravity of Urine by Test strip 2020-05-07 06:45:00* Test Item Value Reference Range Interpretation Comments Urine Specific [place] (test code = 5811-5) 1.025 1.010-1.02 5 [facility]isco[facility]rine pH measurement by automated test avzle2821-11-15 06:45:00* Test Item Value Reference Range Interpretation Comments Urine pH (test code = 01583-4) 6 5-7 [facility]isco[facility]rine leukocyte esterase detection by rnvcrnvz5776-65-45 06:45:00* Test Item Value Reference Range Interpretation Comments Urine Leukocyte Esterase (test code = 5799-2) NEGATIVE NEGATIVE [facility]iscoUrine nitrite ouexfvmiu9462-75-96 06:45:00* Test Item Value Reference Range Interpretation Comments Urine Nitrite (test code = 57336-7) NEGATIVE NEGATIVE [facility]isco[facility]rine protein measurement by test strip (mass/volume)2020-05-07 06:45:00* Test Item Value Reference Range Interpretation Comments Urine Protein (test code = 5804-0) NEGATIVE NEGATIVE [facility]iscoUrine glucose veryuephu4460-73-00 06:45:00* Test Item Value Reference Range Interpretation Comments Urine Glucose (UA) (test code = 2349-9) NEGATIVE NEGATIVE [facility]iscoUrine ketones detection by automated test kyxyo4778-58-26 06:45:00* Test Item Value Reference Range Interpretation Comments Urine Ketones (test code = 16167-1) NEGATIVE NEGATIVE [facility] FriscoUrine urobilinogen measurement by test strip (mass/volume)2020-05-07 06:45:00* Test Item Value Reference Range Interpretation Comments Urine Urobilinogen (test code = 39797-3) 1 0.2-1 [facility] total bilirubin measurement (mass/volume)2020-05-07 06:45:00* Test Item Value Reference Range Interpretation Comments Urine Bilirubin (test code = 1978-6) NEGATIVE NEGATIVE [facility]iscoUrine erythrocytes jwrkoqtoo1312-07-83 06:45:00* Test Item Value Reference Range Interpretation Comments Urine Blood (test code = 09054-7) LARGE NEGATIVE [facility] FriscoAutomated urine sediment leukocyte count by microscopy (number/high power field)2020-05-07 06:45:00* Test Item Value Reference Range Interpretation Comments Urine WBC (test code = 5821-4) 21-50 0-5 [facility]iscoErythrocytes detection in urine sediment by light qcpemipsui1600-27-83 06:45:00* Test Item Value Reference Range Interpretation Comments Urine RBC (test code = 09753-4) 11-20 0-5 [facility]iscoBacteria detection in urine sediment by light nsjwvrgzcu0913-87-38 06:45:00* Test Item Value Reference Range Interpretation Comments Urine Bacteria (test code = 59215-1) RARE NONE [facility] FriscoEpithelial cells detection in urine sediment by light mrwpybohpf3657-68-10 06:45:00* Test Item Value Reference Range Interpretation Comments Urine Epithelial Cells (test code = 41132-8) FEW NONE [facility]iscoerum or plasma sodium measurement (moles/volume)2020-05-07 06:45:00* Test Item Value Reference Range Interpretation Comments Sodium Level (test code = 2951-2) 144 136-145 [facility]iscoerum or plasma potassium measurement (moles/volume)2020-05-07 06:45:00* Test Item Value Reference Range Interpretation Comments Potassium Level (test code = 2823-3) 3.4 3.5-5.1 [facility]iscoerum or plasma chloride measurement (moles/volume)2020-05-07 06:45:00* Test Item Value Reference Range Interpretation Comments Chloride Level (test code = 2075-0) 109 98-107 [facility]iscoerum or plasma carbon dioxide, total measurement (moles/volume)2020-05-07 06:45:00* Test Item Value Reference Range Interpretation Comments Carbon Dioxide Level (test code = 2028-9) 22 22-29 [facility]iscoerum or plasma anion [id number] 06:45:00* Test Item Value Reference Range Interpretation Comments Anion Gap (test code = 82557-4) 16.4 8-16 [facility]iscoerum or plasma urea nitrogen measurement (mass/volume)2020-05-07 06:45:00* Test Item Value Reference Range Interpretation Comments Blood Urea Nitrogen (test code = 3094-0) 20 7-26 [facility] [facility] creatinine [facility] (mass/volume)2020-05-07 06:45:00* Test Item Value Reference Range Interpretation Comments Creatinine (test code = 2160-0) 0.78 0.57-1.11 [facility] urea nitrogen/creatinine mass [id number] 06:45:00* Test Item Value Reference Range Interpretation Comments BUN/Creatinine Ratio (test code = 3097-3) 26 6-25 [facility]iscoEstimated glomerular filtration rate (GFR) sjbvxdaiyizpd8978-80-97 06:45:00* Test Item Value Reference Range Interpretation Comments Estimat Glomerular Filtration Rate (test code = 098815971) > 60 >60 Ranges were taken from the National Kidney Disease Education Program and the [facility] literature.Reference ranges:60 or greater: Ismebz81-10 ( for 3 consecutive months): Chronic kidney disease 15 or less: Kidney failureB[facility] and [facility] FriscoGlucose wwushejiznf6522-68-64 06:45:00* Test Item Value Reference Range Interpretation Comments Glucose Level (test code = FNH1164) 140 74-118 [facility] calcium measurement (mass/volume)2020-05-07 06:45:00* Test Item Value Reference Range Interpretation Comments Calcium Level (test code = 98639-9) 9.1 8.4-10.2 [facility] total bilirubin measurement (mass/volume)2020-05-07 06:45:00* Test Item Value Reference Range Interpretation Comments Total Bilirubin (test code = 1975-2) 1.0 0.2-1.2 [facility]iscoFluoroscopic procedure less than one hour [id number] 06:45:00* Test Item Value Reference Range Interpretation Comments Aspartate Amino Transf (AST/SGOT) (test code = Aspartate Amino Transf (AST/SGOT)) 17 5-34 [facility] alanine aminotransferase measurement (enzymatic activity/volume)2020-05-07 06:45:00* Test Item Value Reference Range Interpretation Comments Alanine Aminotransferase (ALT/SGPT) (test code = 1742-6) 23 0-55 [facility] protein measurement (mass/volume)2020-05-07 06:45:00* Test Item Value Reference Range Interpretation Comments Total Protein (test code = 2885-2) 7.4 6.5-8.1 [facility] albumin measurement (mass/volume)2020-05-07 06:45:00* Test Item Value Reference Range Interpretation Comments Albumin (test code = 1751-7) 4.4 3.5-5.0 [facility] globulin measurement (mass/volume) 2020-05-07 06:45:00* Test Item Value Reference Range Interpretation Comments Globulin (test code = 12941-9) 3.0 2.3-3.5 [facility] albumin/globulin mass zeaju1360-02-71 06:45:00* Test Item Value Reference Range Interpretation Comments Albumin/Globulin Ratio (test code = 1759-0) 1.5 0.8-2.0 [facility] alkaline phosphatase measurement (enzymatic activity/volume)2020-05-07 06:45:00* Test Item Value Reference Range Interpretation Comments Alkaline Phosphatase (test code = 6768-6) 67 40-150 [facility]iscoFluoroscopic procedure less than one hour ihccsbjj3511-57-00 14:02:00* Test Item Value Reference Range Interpretation Comments Coronavirus (PCR) (test code = Coronavirus (PCR)) NOT DETECTED NOTD ETECTED Ref[employer] Aptima SARS-CoV-2 assay is a nucleic amplification test intended for the qualitative detection of RNA from SARS-CoV-2 from nasopharyngeal (DIESEL LUBE TECH) specimens. It is used under Emergency Use Authorization (EUA) by FDA.A positive result is indicative of the presence of SARS-CoV-2 RNA. Clinical correlation with patient history and other diagnostic information is necessary to determine patient infe ction status.A negative (Not Detected) result does not preclude SARS-CoV-2 infec tion. Clinical Correlation with patient history and other diagnostic information should be used in patient management decisions.Invalid: Unable to generate a va lid result on this specimen. Please submit a new specimen for reprat testing oc clinically indicated.Tesing performed by:[facility] [address] [place] [address] [id number], Lanre Edwards MD, PhD [facility] FriscoCHES 2 [id number] 11:41:00 [place] [address] Patient Name: GINA ENGEL MR #: [id number] : 1955 Age/Sex: 64/F Req #: [id number] Adm Physician: Ordered by: DAVID CASTAÑEDA MD Report #: [id number] Location: OR Room/Bed: Procedure: [id number] DX/CHEST 2 EWS Exam Date: 04/19/20 Exam Time: 1101 REPORT STATUS: Signed EXAMINATION: CHEST 2 VIEWS INDICATION: Pre-operative COMPARISON: None FINDING S: LINES/TUBES:None LUNGS:The lungs are well-inflated. No focal consol idation or pulmonary edema. PLEURA:No pleural effusion or pneumothorax. MEDIASTINUM:The cardiomediastinal silhouette appears normal in size and shape. BONES/SOFT TISSUES:No acute osseous injury. ABDOMEN:No free air under the diaphragm. Surgical clips in the right and left abdomen. IMPRESSI ON: No focal pneumonia or pulmonary edema. Signed by: Richmond Frederick MD on 04/19/2020 11:41 AM Dictated By: RICHMOND FREDERICK MD 1141 Transcribed By: NEGRA on 04/19/20 1141 C OPY TO: DAVID CASTAÑEDA MD MRI SPINE LUMBAR [id number] 17:25:00 [place] [address] Patient Name: GINA ENGEL MR #: [id number] : 1955 Age/Sex: 64/F [facility] #: [id number] Req #: [id number] [facility] Physician: Ordered by: CAROLE MONTANEZ M.D. Report #: [id number] Location: MRI Room/Bed: Procedure: [id number] MRI/MRI SP INE LUMBAR WO Exam Date: Exam Time: REPORT STATUS: Signed History: Lumbar radiculo che. Comparison studies: Lumbar spine MRI 01/05/2019 Technique: Sagitt al, axial coronal T2, sagittal T1, axial T2 FS, sagittal STIR and axial obliqu e proton density. Intravenous contrast: None Findings: Number of lum bar vertebral bodies: 5. Alignment: Normal lordosis. No scoliosis. Sof t tissues: No T2 hyperintense inflammatory changes. Paraspinal muscles: No sig nal abnormalities. Well-preserved. No atrophic changes Lower thoracic c ord: Normal in signal and morphology. The tip of the conus is at L1-L2. C auda equina: No masses. No arachnoiditis. Vertebrae: No compression fractu res, infection or neoplasm. Small Schmorl's node present along the superior T1 2 endplate. Degenerative changes: L1-L2: No abnormalities L2-L3 : No abnormalities L3-L4: No abnormalities L4-L5: Mildly degene rated disc. Disc bulge slightly asymmetric to the left, thickened ligamentum f lavum and moderate bilateral facet arthrosis with mild canal stenosis and mild left foraminal stenosis. Patent right foramen. Mild synovitis at the right fa cet, new from the prior MRI. L5-S1: Moderately degenerated disc with mild degenerative endplate changes with minimal edema along the left inferior L5 e ndplate. Asymmetric left disc osteophyte complex and mild facet arthrosis resu lt in mild bilateral foraminal stenosis. No significant canal stenosis. These findings are unchanged from the prior MRI. IMPRESSION: 1. Disc degeneration, mild at L4-L5 and moderate at L5-S1, unchanged. 2. Mild degener ative canal stenosis at L4-L5, unchanged. 3. Mild foraminal stenosis at L4-L5 and at L5-S1, unchanged. 4. Moderate L4-L5 facet arthrosis with new mild syn ovitis at the right facet. Signed by: Dr. Joseph Anderson M.D. on 04/06/2020 5 :43 PM Dictated By: JOSEPH ANDERSON MD 42 Transcribed By: NEGRA on 04/06/201742 COPY TO: CAROLE MONTANEZ M.D. MRI RIGHT KNEE [id number] 14:59:00 [place] [address] Patient Name: GINA ENGEL MR #: [id number] : 1955 Age/Sex: 64/F Req #: [id number] [facility] Physician: Ordered by: DAVID CASTAÑEDA MD Report #: [id number] Location: MRI Room/Bed: Procedure: [id number] MRI/MRI RIGHT KNEE WO Exam Date: Exam Time: REPORT STATUS: Signed TECHNIQUE: Magnetic resonance imaging of the RIGHT KNEE was performed WITHOUT injected contrast. HI STORY: Right knee pain, tear of lateral meniscus COMPARISON: Left knee MRI FINDINGS: LIGAMENTS AND TENDONS: ACL: Intact PCL: Intact Collateral ligaments: Intact Iliotibial band: Unremarka ble Popliteal tendon: Intact Extensor mechanism: Intact. Mild te ndinosis of the patellar tendon at the superior attachment. JOINT: Menisci: Medial: Focal tear along the free margin at the body of the medial meniscus. Lateral: Intact Articular Cartilag e: Medial Compartment: Diffuse high-grade cartilage thinning along the weightbearing medial femoral condyle and medial tibial plateau. Lateral Compartment: Diffuse low-grade cartilage thinning with scattered fi ssuring. No full-thickness cartilage defects. Patellofemoral Compart ment: Diffuse cartilage thinning with focal high-grade defect overlying the m edian patellar ridge. Low-grade thinning along the trochlear cartilage. Smal l tricompartmental marginal osteophytes. Joint Fluid: The amount of fl uid within the joint is within physiologic limits. BONE: No focal or infiltrative bone marrow replacing abnormality. No acute fracture. SOFT TISSUES: Anterior subcutaneous soft tissue edema overlying the patellar tendo n. IMPRESSION: 1. Small focal tear along the free margin at the body of the medial meniscus. 2. Tricompartmental degenerative changes, greatest w ithin the medial compartment with diffuse high-grade cartilage loss along the weightbearing medial femoral condyle and medial tibial plateau. 3. Mild tend inosis of the patellar tendon. Overlying mild anterior subcutaneous soft tissu e edema. Signed by: Annmarie Gardner MD on 04/05/2020 4:14 PM Dictate d By: ANNMARIE GARDNER MD 13 Transcribed By: NEGRA on 04/05/201613 COPY TO: DAVID CASTAÑEDA MD BASIC METABOLIC [id number] 15:44:00* Test Item Value Reference Range Interpretation Comments SODIUM (test code = NA) 138 MMOL/L [...] CA) 9.5 mg/dL 8.8-10.2 N CBC W/AUTO [id number] 15:29:00* Test Item Value Reference Range Interpretation [...] 0.04 x10 3/uL 0.0-0.20 N TROPONIN I [id number] 15:26:00* Test Item Value Reference Range Interpretation Comments TROPONIN I RAPID (test code = TROPIRAP) 0.00 ng/mL 0.00-0.08 N - The use of serial sampling and testing protocol is a recommended practice- An elevated tropnin level alone is often not sufficient for diagnosis of myocardial infarction. SP LUM AP/LAT/FLEX/EXT MIN [id number] 12:15:00 [place] [address] Patient Name: GINA ENGEL MR #: [id number] : 1955 Age/Sex: 64/F Req #: [id number] Adm Physician: Ordered by: CAROLE MONTANEZ M.D. Report #: [id number] Location: [facility] Room/Bed: Procedure: [id number] DX/SP LUM AP/LAT/FLEX/EXT MIN 4VW Exam Date: [...] 12:19 PM Dictated By: JOSEPH BRENNAN MD 1219 T ranscribed By: NEGRA on 07/25/19 1219 COPY TO: CAROLE MONTANEZ M.D. POC urinalysis [id number] 10:32:00* Test Item Value Reference Range Interpretation Comments Color urine, POC (test code = 1857944) Yellow Clarity urine, POC (test code = 5359470) Clear Glucose urine, POC (test code = 3081098) Negative Negative Bilirubin urine, POC (test code = 3170131) Negative Negative Ketones urine, POC (test code = 2423216) Negative Negative Specific gravity urine, POC (test code = 7004005) >/=1.030 1.00 5-1.030 Blood urine, POC (test code = 7838667) Negative Negative pH urine, POC (test code = 1236789) 6.0 5.0, 5.5, 6. 0, 6.5, 7.0, 7.5, 8.0, 8.5 Protein urine, POC (test code = 4191623) Negative Negative Urobilinogen urine, POC (test code = 0281554) <2.0 <2.0 Nitrite urine, POC (test code = 4406481) Negative Negative Leukocyte esterase urine, POC (test code = 0096573) Negative [facility] Brain/Head w/o [id number] 15:53:49Patient: GINA ENGEL Date/Time01/21/2019 15:05 CDTReason for [...] (Electronic Signature): 01/21/2019 3:53 pmMRI SPINE LUMBAR [id number] 14:15:00 [place] [address] Patient Name: GINA ENGEL MR #: [id number] : 1955 Age/Sex: 63/F Req #: [id number] Adm Physician: Ordered by: DAVID CASTAÑEDA MD Report #: [id number] Location: MRI Room/Bed: Procedure: [id number] MRI/MRI SPINE LUMBAR WO Exam Date: Exam [...] TO: DAVID CASTAÑEDA MD MRI KNEE LEFT [id number] 12:37:00 [place] [address] Patient Name: GINA ENGEL MR #: [id number] : 1955 Age/Sex: 63/F Req #: [id number] [facility] Physician: Ordered by: DAVID CASTAÑEDA MD Report #: [id number] Location: MRI Room/Bed: Procedure: [id number] MRI/MRI KNEE LEFT WO Exam Date: Exam [...] fracture or acute ligamentous tear. Signed by: Dr. Ronnie Rehman D.O., M.M.M. on 01/05/2019 12:47 PM Dictated By: RONNIE REHMAN DO 1247 Transcrib ed By: NEGRA on 01/05/19 1243 COPY TO: DAVID CASTAÑEDA MD MRI ANKLE LEFT [id number] 14:52:00 [place] [address] Patient Name: GINA ENGEL MR #: [id number] : 1955 Age/Sex: 62/F Req #: [id number] Adm Physician: Ordered by: ADRIAN MARTINEZ MD Report #: [id number] Location: MRI Room/Bed: Procedure: [id number] MRI/MRI ANKLE LEFT WO Exam Date : Exam Time: REPORT STATUS: Signed MRI of the left ankle without contrast. History: Trauma. Pain. Decreased range of motion. Technique: Utilizing a high-field 1.5T magnet, the following seque nces were acquired: PD FS in all 3 planes with additional axial PD. Comp arison: None. Findings: Achilles tendon and plantar fascia: The Point s tendon and plantar fascia are normal. [...] MD 1502 Transcribed By: NEGRA on 04/14/18 150 COPY TO: ADRIAN MARTINEZ MD MAMMOGRAPHY DIGITAL SCR BILAT [facility] [address] [place] [address] Patient Name: GINA ENGEL MR #: [id number] : 1955 Age/Sex: 62/F Req #: [id number] Adm Physician: Ordered by: ADRIAN MARTINEZ MD Report #: [id number] Location: MAMMO Room/Bed: Procedure: [id number] MG/MAMMOGRAPHY DIGITAL SCR BILA T Exam Date: 12/17/17 Exam Time: 1350 REPORT S TATUS: Signed #[id number] - MGSCRBIL #[facility] 12/17/2017 CLINICAL: Routine screening. Comparison is m estrella to exams dated: 11/13/2016 mammogram - [facility] an d 01/04/2008 mammogram - [facility]. Current study contains 4 film s. The [...] be notified by letter of the shaquille villagomez/penrad:12/24/2017 11:29:09 Pediatric Lpn: Angelica Staton RT(R)(M), [facility] letter sent: Compared to Prior B9 Mammogram BI-RADS: 2 Benign Dictated By: JOJO PERERA DO 28 COPY TO: ADRIAN MARTINEZ MD MRI KNEE LEFT WO [place] [address] Patient Name: IGNA ENGEL MR #: [id number] : 1955 Age/Sex: 62/F Req #: [id number] [facility] Physician: Ordered by: DAVID CASTAÑEDA MD Report #: [id number] Location: MRI Room/Bed: Procedure: [id number] MRI/MRI KNEE LEFT WO Exam D ate: [...] 3:59 PM Dictated By: JANETH NOGUERA MD 1556 Transcribed By: NEGRA on 05/06/17 2889 COPY TO: DAVID CASTAÑEDA MD
--- OUTSIDE RECORDS SUMMARY | 2020-07-04 18:16 | XMS REPORT | Clinical Summary ---
Author Author [facility] Address Unknown Phone Unavailable Care Team Providers Care Personnel Consultant Name Role Phone Jose Jimenes MD PCP Allergies No Known Active Allergies Medications End Date Status Medication Sig Dispensed Refills Start Date Active meloxicam (MOBIC) 15 mg Take 15 mg by 0 tablet mouth daily. Active Problems No known active problems Encounters Care Team Description Date Type Specialty Tiara Moralez PA Mixed incontinence urge and stress (Prim rachel Dx); Urinary frequency 07/10/2019 Office Visit Urology after 06/28/2019 Surgical History Surgery Date Site/Laterality Comments KNEE ARTHRODESIS STOMACH SURGERY HYSTERECTOMY GALLBLADDER SURGERY Medical History Medical History Date Comments Urinary incontinence Family History Medical History Relation Name Comments Stroke Father Dementia Mother Relation Name Status Comments Father Mother Social History Date Tobacco Use Types Packs/Day Years Used Never Smoker Smokeless Tobacco: Never Used Sex Assigned at Date Recorded Not on file Last Filed Vital Signs Reading Time Taken Comments Vital Sign 153/79 07/10/2019 10:26 AM [employer] Blood Pressure 63 07/10/2019 10:26 AM [employer] Pulse - - Temperature - - Respiratory Rate - - Oxygen Saturation - - Inhaled Oxygen Concentration 95.3 kg (210 lb) 07/10/2019 10:26 AM [employer] Weight 154.9 cm (5' 1") 07/10/2019 10:26 AM [employer] Height 39.68 07/10/2019 10:26 AM [employer] Body Mass Index Plan of Treatment Health Maintenance Due Date Last Done Comments BREAST CANCER SCREENING 2004 COLONOSCOPY SCREENING 2004 SHINGLES VACCINES (#1) 2004 65+ PNEUMOCOCCAL VACCINE 2019 (1 of 1 - PPSV23) INFLUENZA VACCINE 03/30/2020 Procedures Comments Procedure Name Priority Date/Time Associated Diag nosis POC URINALYSIS DIPSTICK Routine 07/10/2019 Mixed incontinence urge 10:32 AM [employer] and stress after 06/28/2019 Results * POC urinalysis dipstick (07/10/2019 10:32 AM [employer]) Color urine, Yellow POC Clarity urine, Clear [...] Negative esterase urine, POC Specimen Urine after 06/28/2019 Insurance Type Payer Benefit Subscriber ID Effective Phone Address Plan / Dates Group PPO BCBS BCBS OUT [id number] 2016-P OF STATE resent HMO CIGNA CIGNA OPEN [id number] 2016-P ACCESS/NET resent WORK ([place]) [place] [address] Advance Directives For more information, please contact: [phone] Patient Medical Services Assistant Explanation Type Date Recorded Advance Directives, Living Will and Medical Power of Cardiovascular Physician Assistant
== END 2020-06-28 23:50 | disposition home or self-care (01) ==
LOC: FSED 21:00
DX: N12 Tubulo-interstitial nephritis, not specified as acute or chronic (principal); R11.2 Nausea with vomiting, unspecified; M54.5 Low back pain; K76.0 Fatty (change of) liver, not elsewhere classified; K57.90 Diverticulosis of intestine, part unspecified, without perforation or abscess without bleeding; R53.81 Other malaise; B19.20 Unspecified viral hepatitis C without hepatic coma
CPT/HCPCS: 74176; 99283; J1885; J2270; J2550; J2930; Q0162

== ENCOUNTER → 2020-06-28 | Day surgery (SDC) | payer MEDICARE, OTHER ==
[2020-06-25 11:51] LABS: BASOPHILS # (AUTO) 0.1 (0.0-0.1); BASOPHILS % 0.8 % (0.0-1.0); EOSINOPHILS # (AUTO) 0.3 (0.0-0.4); EOSINOPHILS % 4.7 % (0.0-6.0); HEMATOCRIT 34.8 % (34.2-44.1); LYMPHOCYTES # (AUTO) 1.5 (1.0-3.2); LYMPHOCYTES % 23.7 % (18.0-39.1); MEAN CORPUSCULAR HEMOGLOBIN 27.3 pg (28-32); MEAN CORPUSCULAR HGB CONC 31.6 g/dL (31-35); MEAN CORPUSCULAR VOLUME 86.4 fL (81-99); MONOCYTES # (AUTO) 0.5 (0.2-0.8); MONOCYTES % 8.1 % (4.4-11.3); NEUTROPHILS # (AUTO) 3.9 (2.1-6.9); NEUTROPHILS % 62.2 % (38.7-80.0); PLATELET COUNT 234 x10e3/uL (140-360); RED BLOOD COUNT 4.03 x10e6/uL (3.6-5.1); RED CELL DISTRIBUTION WIDTH 13.5 % (11.7-14.4)
[~2020-06-28] MED LIST changes: +ACETAMINOPHEN/CODEINE 300MG - 30MG TAB ONE; +AZO BLADDER CO300 MG PO; +B&O 60MG R/S 60 MG SUPP PR ONE; +CEFTRIAXONE SOD 1 GM/NS 50 ML 50 ML IV ONE; +CIPRO500 MG PO; +DEXAMETHASONE SOD PHOS INJ 4 MG/ML VIAL ONE; +FENTANYL CITRATE/PF 100MCG/2 ML INJ ONE; +HYDROMORPHONE 1MG/1ML INJ ONE; +IOPAMIDOL 300MG/ML 50ML INFUS..BTL IV ONE; +LIDOCAINE HCL 2% LOCAL INJ 5 ML SDV VIAL INJ ONE; +MACROBID 100 M100 MG PO; +MIDAZOLAM HCL 2 MG/2 ML VIAL ONE; +ONDANSETRON HCL INJ 2MG/ML 2ML 2 MG/ML VIAL ONE; +ONDANSETRON ODT8 MG PO; +PREDNISONE20 MG PO; +PROPOFOL IV EMULSION 10 MG/ML 20 ML VIAL ONE; +SEVOFLURANE INHAL SOLN 250 ML PEN BTL ONE; +TYLENOL # 31 EA; +ULTRAM50 MG PO
[2020-06-28 15:25] VITALS: BP 161/80
== END | disposition home or self-care (01) ==
LOC: OR 11:50
PROVIDERS: ATTEND Urology
DX: N20.0 Calculus of kidney (principal); Z46.6 Encounter for fitting and adjustment of urinary device; N39.0 Urinary tract infection, site not specified; N20.1 Calculus of ureter; N13.30 Unspecified hydronephrosis; N81.89 Other female genital prolapse; R80.9 Proteinuria, unspecified; N28.89 Other specified disorders of kidney and ureter; N81.10 Cystocele, unspecified; N81.6 Rectocele; N36.41 Hypermobility of urethra; N95.2 Postmenopausal atrophic vaginitis; K21.9 Gastro-esophageal reflux disease without esophagitis; K28.9 Gastrojejunal ulcer, unspecified as acute or chronic, without hemorrhage or perforation; Z01.812 Encounter for preprocedural laboratory examination; Z11.59 Encounter for screening for other viral diseases; Z68.39 Body mass index [BMI] 39.0-39.9, adult; Z84.1 Family history of disorders of kidney and ureter
CPT/HCPCS: 36415; 52352; 74420; 85025; C1769; J0696; J1100; J1170; J2001; J2250; J2405; J2704; J3010; Q9967; U0002

== ENCOUNTER → 2020-08-26 | Outpatient (CLI) | payer MEDICARE, OTHER ==
[~2020-08-26] MED LIST changes: +COVID-19 VACC, MRNA(MODERNA)/PF 100 MCG/0.5 ML VIAL IM ONE; +MACROBID 100 M100 MG PO; +ONDANSETRON ODT8 MG PO; +PREDNISONE20 MG PO; +ULTRAM50 MG PO
== END ==
LOC: VACCPMC 10:10
DX: Z23 Encounter for immunization (principal); Z20.828 Contact with and (suspected) exposure to other viral communicable diseases

== ENCOUNTER → 2020-10-02 | Outpatient (CLI) | payer OTHER | END | DRG 951 | LOC: VACCPMC 08:14 | DX: Z23 Encounter for immunization (principal); Z20.822 Contact with and (suspected) exposure to COVID-19 | CPT/HCPCS: 0012A; 91301 ==

== ENCOUNTER → 2020-12-18 | Outpatient (CLI) | payer MEDICARE, OTHER ==
[~2020-12-18] MED LIST changes: -COVID-19 VACC, MRNA(MODERNA)/PF 100 MCG/0.5 ML VIAL IM ONE
== END ==
LOC: RAD 08:42
PROVIDERS: ATTEND Family Medicine
DX: R07.9 Chest pain, unspecified (principal); I10 Essential (primary) hypertension; R00.2 Palpitations
CPT/HCPCS: 93306

== ENCOUNTER 2022-01-15 14:08 | Emergency (ER) | payer MEDICARE, OTHER ==
[~2022-01-15] VITALS: Ht 154.9 cm; Wt 94.3 kg
== END 2022-01-15 15:02 | disposition home or self-care (01) ==
LOC: FSED 14:24
DX: R33.9 Retention of urine, unspecified (principal); B19.20 Unspecified viral hepatitis C without hepatic coma
CPT/HCPCS: 51700; 87086; 99283

== ENCOUNTER 2022-12-30 10:49 | Emergency (ER) | payer MEDICARE, OTHER ==
[~2022-12-30] VITALS: Ht 154.9 cm; Wt 94.3 kg
[2022-12-30] MEDS ORDERED: Morphine 4mg INJECTION 4 MG/ML INJ IV STA (11:24)
[2022-12-30] MEDS ORDERED: ONDANSETRON HCL INJ 2MG/ML 2ML 2 MG/ML VIAL IV STA (11:24)
[2022-12-30] MEDS ORDERED: SODIUM CHLORIDE 0.9% 1000ML 1,000 ML IV STA ×2 (11:24)
[2022-12-30 12:00] LABS: BASOPHILS % 0.4 % (0.0-1.0); EOSINOPHILS # (AUTO) 0.1 (0.0-0.4); EOSINOPHILS % 2.6 % (0.0-6.0); HEMATOCRIT 41.9 % (34.2-44.1); HEMOGLOBIN 13.6 g/dL (12.0-16.0); LYMPHOCYTES # (AUTO) 1.4 (1.0-3.2); LYMPHOCYTES % 26.6 % (18.0-39.1); MEAN CORPUSCULAR HEMOGLOBIN 27.8 pg (28-32); MEAN CORPUSCULAR HGB CONC 32.5 g/dL (31-35); MEAN CORPUSCULAR VOLUME 85.5 fL (81-99); MONOCYTES # (AUTO) 0.4 (0.2-0.8); MONOCYTES % 7.2 % (4.4-11.3); NEUTROPHILS # (AUTO) 3.4 (2.1-6.9); PLATELET COUNT 191 x10e3/uL (140-360); RED CELL DISTRIBUTION WIDTH 14.6 % (11.7-14.4)
[2022-12-30 12:41] LABS: ALBUMIN 4.1 g/dL (3.5-5.0); ALBUMIN/GLOBULIN RATIO 1.2 (0.8-2.0); ANION GAP 12.3 mmol/L (8-16); CALCIUM 9.3 mg/dL (8.4-10.2); CREATININE, SERUM 0.72 mg/dL (0.57-1.11); POTASSIUM 4.3 mmol/L (3.5-5.1)
[2022-12-30] MEDS ORDERED: IOPAMIDOL 370 MG/ML 100 ML INFUS..BTL INJ ONE (12:54)
[2022-12-30 12:57] LABS: CLARITY,URINE CLEAR (CLEAR); COLOR,URINE YELLOW (YELLOW); KETONES,URINE NEGATIVE (NEGATIVE); LEUKOCYTE ESTERASE ,URINE NEGATIVE (NEGATIVE); NITRITE,URINE NEGATIVE (NEGATIVE); PROTEIN,URINE DIPSTICK NEGATIVE (NEGATIVE); URINE UROBILINOGEN 0.2 mg/dL (0.2 - 1)
[2022-12-30 13:06] LABS: BACTERIA,URINE FEW /HPF; EPITHELIAL CELLS,URINE MODERATE /LPF; RBC,URINE 0-5 /HPF (0-5); WBC,URINE (MAN) 0-5 /HPF (0-5)
[2022-12-30] MEDS ORDERED: ONDANSETRON ODT4 MG PO (13:39)
[2022-12-30 13:46] VITALS: BP 106/75
== END 2022-12-30 13:55 | disposition home or self-care (01) ==
LOC: ER 11:12
DX: R10.32 Left lower quadrant pain (principal); R11.0 Nausea; B19.20 Unspecified viral hepatitis C without hepatic coma
CPT/HCPCS: 36415; 74177; 80053; 81001; 83690; 85025; 99284; J2270; J2405; J7030; Q9967

== ENCOUNTER → 2023-02-17 | Day surgery (SDC) | payer MEDICARE, OTHER ==
[~2023-02-17] MED LIST changes: +BENADRYL25 M1 PO; +CENTRUM ADULTS1 EACH PO; +FENTANYL CITRATE/PF 100MCG/2 ML INJ ONE; +LACTATED RINGER'S 1,000 ML ONE; +LOSARTAN POTASS25 MG PO; +ONDANSETRON ODT4 MG PO
[2023-02-17 09:00] VITALS: BP 125/78; PULSE 68; RESP 16; O2SAT 97
== END | disposition home or self-care (01) ==
LOC: OR 07:11
PROVIDERS: ATTEND Internal Medicine Gastroenterology
DX: K29.50 Unspecified chronic gastritis without bleeding (principal); D12.0 Benign neoplasm of cecum; D12.4 Benign neoplasm of descending colon; K29.60 Other gastritis without bleeding; K20.90 Esophagitis, unspecified without bleeding; K21.9 Gastro-esophageal reflux disease without esophagitis; K59.09 Other constipation; K44.9 Diaphragmatic hernia without obstruction or gangrene; K57.30 Diverticulosis of large intestine without perforation or abscess without bleeding; K64.8 Other hemorrhoids; E66.01 Morbid (severe) obesity due to excess calories; I10 Essential (primary) hypertension; R05.9 Cough, unspecified; M51.37 Other intervertebral disc degeneration, lumbosacral region; N20.0 Calculus of kidney; T78.49XA Other allergy, initial encounter; X58.XXXA Exposure to other specified factors, initial encounter; Z01.810 Encounter for preprocedural cardiovascular examination; Z79.899 Other long term (current) drug therapy; Z68.41 Body mass index [BMI] 40.0-44.9, adult; Z86.19 Personal history of other infectious and parasitic diseases; Z80.0 Family history of malignant neoplasm of digestive organs
CPT/HCPCS: 43239; 45380; 45385; 88305; 88342; 93005; C9113; J3010; J7121; 45378